=== PATIENT | female | born 1945 | race Caucasian/White ===

== ENCOUNTER 2018-09-10 12:05 | Emergency (ER) | payer MEDICARE ==
[2018-09-10 12:32] VITALS: BP 171/76; PULSE 59; O2SAT 100
--- NOTE | 2018-09-10 12:40 | ERPHSYRPT ---
- History of Present Illness Time Seen by Provider: 09/10/18 12:20 Source: patient Patient Subjective Stated Complaint: pain to right lower leg with swelling to the knee for a couple of days. pain into calf to day/ no injury.. Triage Nursing Assessment: alert and in no distress. pain to right calf today swelling to right knee x 2 days. + pedal pulse.. warm to touch. denies injury.. did travel with suzanne in a [employer] to [place] 1 month ago. no other c/o Physician History: 73 y/o white female presents with 2 week h/o right lower extremity pain and swelling. pt was traveling in a [employer] truck for 4 days recently. pt denies cp and soa. pt has a longstanding h/o varicose veins. her mother had a h/o dvt. pt is on a once a day baby asa. Method of Injury: other (no injury) Occurred: other (2 weeks) Quality: aching Lower Extremities Pain: leg: right Associated Symptoms: none Allergies/Adverse Reactions: cephalexin monohydrate [From Keflex] Allergy (Unknown, Verified 09/10/18 12:32) erythromycin base [Erythromycin Base] Allergy (Unknown, Verified 09/10/18 12:32) Sulfa (Sulfonamide Antibiotics) [Sulfa(Sulfonamide Antibiotics)] Allergy ( Unknown, Verified 09/10/18 12:32) betamethasone [From Celestone] Adverse Reaction (Unknown, Verified 09/10/18 12: 32) tired/"doenst feel well" betamethasone sodium phosphate [From Celestone] Adverse Reaction (Unknown, Verified 09/10/18 12:32) tired/"doenst feel well" brompheniramine maleate [From Dimetapp Allergy] Adverse Reaction (Unknown, Verified 09/10/18 12:32) codeine [Codeine] Adverse Reaction (Unknown, Verified 09/10/18 12:32) phenylpropanolamine HCl [From Dimetapp Allergy] Adverse Reaction (Unknown, Verified 09/10/18 12:32) Home Medications: Aspirin 81 mg PO DAILY 09/17/14 [History] Metformin HCl 500 mg [Glucophage 500 MG] 1,000 mg PO BID 09/17/14 [History ] Nebivolol HCl [Bystolic] 5 mg PO DAILY 09/17/14 [History] PANTOPRAZOLE 40 mg Tablet [Protonix 40MG Tablet] 40 mg PO DAILY 09/17/14 [ History] Carboxymethylcellulose Sodium [Thera Tears] 1 - 2 drop OP Q2H/PRN PRN 10/25/15 [ History] Lisinopril 20 mg [Zestril 20 MG] 20 mg PO DAILY 10/25/15 [History] Nitroglycerin 0.4 mg (Ed) [Nitrostat 0.4 MG (ED)] 0.4 mg SL UD 10/25/15 [ History] Hx Tetanus, Diphtheria Vaccination/Date Given: No Hx Influenza Vaccination/Date Given: No Hx Pneumococcal Vaccination/Date Given: Yes () - Review of Systems Constitutional: No Symptoms Eyes: No Symptoms Ears, Nose, & Throat: No Symptoms Respiratory: No Symptoms Cardiac: No Symptoms Abdominal/Gastrointestinal: No Symptoms Genitourinary Symptoms: No Symptoms Musculoskeletal: Other (right lower leg) Skin: No Symptoms Neurological: No Symptoms Psychological: No Symptoms Endocrine: No Symptoms Hematologic/Lymphatic: No Symptoms Immunological/Allergic: No Symptoms All Other Systems: Reviewed and Negative - Past Medical History Pertinent Past Medical History: Yes Neurological History: Migraines ENT History: Cataracts Cardiac History: Hypertension Respiratory History: Asthma, Bronchitis Endocrine Medical History: Diabetes Type II, Hypoglycemia Musculoskeletal History: Arthritis, Osteoarthritis GI Medical History: Colitis, Hemorrhoids, Polyps History: No Pertinent History Psycho-Social History: Depression Female Reproductive Disorders: No Pertinent History - Past Surgical History Past Surgical History: Yes Neuro Surgical History: No Pertinent History Cardiac: Cardiac Catheterization Respiratory: No Pertinent History Gastrointestinal: Appendectomy Genitourinary: No Pertinent History Musculoskeletal: Joint Replacement, Orthopedic Surgery Female Surgical History: Hysterectomy Other Surgical History: bilateral knee replacements, knee surgeries and arthroscopies., - Social History Smoking Status: Never smoker Exposure to second hand smoke: Yes Drug Use: none Patient Lives Alone: No - Female History Hx Now: No - Nursing Vital Signs Nursing Vital Signs: Initial Vital Signs Temperature 97.2 F 09/10/18 12:25 Pulse Rate 59 L 09/10/18 12:25 Respiratory Rate 16 09/10/18 12:25 Blood Pressure 171/76 09/10/18 12:25 O2 Sat by Pulse Oximetry 100 09/10/18 12:25 Pain Scale Pain Intensity 3 - Physical Exam General Appearance: no apparent distress, alert, anxiety Eyes, Ears, Nose, Throat Exam: normal ENT inspection, moist mucous membranes Neck Exam: normal inspection, non-tender, supple, full range of motion Cardiovascular/Respiratory Exam: chest non-tender, normal breath sounds, regular rate/rhythm Gastrointestinal/Abdominal Exam: non-tender, soft, no organomegaly, no hernia Back Exam: normal inspection, normal range of motion, No CVA tenderness, No vertebral tenderness Hips Exam: bilateral: non-tender, normal inspection, normal range of motion, no evidence of injury Legs Exam: right leg: non-tender, bilateral leg: normal inspection, normal range of motion, no evidence of injury Knees Exam: bilateral knee: non-tender, normal inspection, normal range of motion, no evidence of injury Ankle Exam: bilateral ankle: non-tender, normal inspection, normal range of motion, no evidence of injury Foot Exam: bilateral foot: non-tender, normal inspection, normal range of motion , no evidence of injury Neuro/Tendon Exam: normal sensation, normal motor functions, normal tendon functions Mental Status Exam: alert, oriented x 3, cooperative Skin Exam: normal color, warm, dry SpO2 Interpretation: normal SpO2: 100 Oxygen Delivery: Room Air - Course Nursing assessment & vital signs reviewed: Yes Ordered Tests: Active Orders 24 hr Category Date Time Status VENOUS UNILAT/LIMITED EXTREMIT [US] Stat Exams 09/10/18 12:41 Ordered - Progress Progress: unchanged Counseled pt/family regarding: diagnosis, need for follow-up, rad results - Departure Time of Disposition: 13:02 Departure Disposition: Home Clinical Impression: Right leg pain Condition: Stable Critical Care Time: No Referrals: SARAH SMITH MD [Primary Care Provider] - Additional Instructions: keep lower legs elevated above level of heart when not ambulating. add ibuprofen for pain. heating pad to area, but not directly on skin, on medium heat, 3 times daily. follow up with your primary doctor for further management
--- NOTE | 2018-09-10 13:17 | XRAY ---
Indication: Right leg swelling. Two-dimensional sonogram and color Doppler imaging of the major venous vessels of the right leg was performed. Comparison: February 24, 2015. Again no thrombus seen in the examined deep venous vessels of the right leg including greater saphenous vein. Veins demonstrate normal compressibility. Venous waveforms are normal with and without augmentation. Impression: Right leg again negative for DVT.
== END 2018-09-10 13:31 | disposition home or self-care (01) ==
LOC: ED 12:05
DX: M79.661 Pain in right lower leg (principal); Z79.899 Other long term (current) drug therapy
CPT/HCPCS: 93971; 99283

== ENCOUNTER 2018-12-12 07:09 | Emergency (ER) | payer MEDICARE ==
[2018-12-12 07:35] VITALS: PULSE 64; O2SAT 97
--- NOTE | 2018-12-12 07:43 | ERPHSYRPT ---
- History of Present Illness Time Seen by Provider: 12/12/18 07:39 Source: patient Exam Limitations: no limitations Patient Subjective Stated Complaint: noticed a small raised area to right lower leg this am. states granddaughter bumped into it last week. Triage Nursing Assessment: ambulated to room per self. skin w/d, color normal, resp easy. very small bruised raised area noted to right lower leg. Physician History: noticed a small raised area to right lower leg this am. states granddaughter bumped into it last week. no active bleeding Method of Injury: direct blow Occurred: this morning Quality: burning Severity of Pain-Max: mild Severity of Pain-Current: mild Allergies/Adverse Reactions: cephalexin monohydrate [From Keflex] Allergy (Unknown, Verified 12/12/18 07:30) erythromycin base [Erythromycin Base] Allergy (Unknown, Verified 12/12/18 07:30) Sulfa (Sulfonamide Antibiotics) [Sulfa(Sulfonamide Antibiotics)] Allergy ( Unknown, Verified 12/12/18 07:30) doxycycline Allergy (Verified 12/12/18 07:30) betamethasone [From Celestone] Adverse Reaction (Unknown, Verified 12/12/18 07: 30) tired/"doenst feel well" betamethasone sodium phosphate [From Celestone] Adverse Reaction (Unknown, Verified 12/12/18 07:30) tired/"doenst feel well" brompheniramine maleate [From Dimetapp Allergy] Adverse Reaction (Unknown, Verified 12/12/18 07:30) codeine [Codeine] Adverse Reaction (Unknown, Verified 12/12/18 07:30) phenylpropanolamine HCl [From Dimetapp Allergy] Adverse Reaction (Unknown, Verified 12/12/18 07:30) Home Medications: Aspirin 81 mg PO DAILY 09/17/14 [History] Metformin HCl 500 mg [Glucophage 500 MG] 1,000 mg PO BID 09/17/14 [History ] Nebivolol HCl [Bystolic] 5 mg PO DAILY 09/17/14 [History] Carboxymethylcellulose Sodium [Thera Tears] 1 - 2 drop OP Q2H/PRN PRN 10/25/15 [ History] Lisinopril 20 mg [Zestril 20 MG] 20 mg PO DAILY 10/25/15 [History] Nitroglycerin 0.4 mg (Ed) [Nitrostat 0.4 MG (ED)] 0.4 mg SL UD 10/25/15 [ History] Glipizide [Glipizide ER] 5 mg PO DAILY 12/12/18 [History] Hx Tetanus, Diphtheria Vaccination/Date Given: No Hx Influenza Vaccination/Date Given: No Hx Pneumococcal Vaccination/Date Given: Yes () Immunizations Up to Date: No - Review of Systems Constitutional: No Fever, No Chills Eyes: No Symptoms Ears, Nose, & Throat: No Symptoms Respiratory: No Cough, No Dyspnea Cardiac: No Chest Pain, No Edema, No Syncope Abdominal/Gastrointestinal: No Abdominal Pain, No Nausea, No Vomiting, No Diarrhea Genitourinary Symptoms: No Dysuria Musculoskeletal: No Back Pain, No Neck Pain Skin: Induration, No Rash Neurological: No Dizziness, No Focal Weakness, No Sensory Changes Psychological: No Symptoms Endocrine: No Symptoms All Other Systems: Reviewed and Negative - Past Medical History Pertinent Past Medical History: Yes Neurological History: Migraines ENT History: Cataracts Cardiac History: Hypertension Respiratory History: Asthma, Bronchitis Endocrine Medical History: Diabetes Type II, Hypoglycemia Musculoskeletal History: Arthritis, Osteoarthritis GI Medical History: Colitis, Hemorrhoids, Polyps History: No Pertinent History Psycho-Social History: Depression Female Reproductive Disorders: No Pertinent History - Past Surgical History Past Surgical History: Yes Neuro Surgical History: No Pertinent History Cardiac: Cardiac Catheterization Respiratory: No Pertinent History Gastrointestinal: Appendectomy Genitourinary: No Pertinent History Musculoskeletal: Joint Replacement, Orthopedic Surgery Female Surgical History: Hysterectomy Other Surgical History: bilateral knee replacements, knee surgeries and arthroscopies., - Social History Smoking Status: Never smoker Exposure to second hand smoke: Yes Drug Use: none Patient Lives Alone: No - Female History Hx Now: No - Nursing Vital Signs Nursing Vital Signs: Initial Vital Signs Temperature 97.4 F 12/12/18 07:18 Pulse Rate 64 12/12/18 07:18 Respiratory Rate 16 12/12/18 07:18 Blood Pressure 184/82 12/12/18 07:18 O2 Sat by Pulse Oximetry 97 12/12/18 07:18 Pain Scale Pain Intensity 3 - Physical Exam General Appearance: alert Eyes, Ears, Nose, Throat Exam: moist mucous membranes Neck Exam: non-tender, supple Cardiovascular/Respiratory Exam: chest non-tender, normal breath sounds, regular rate/rhythm, no respiratory distress Gastrointestinal/Abdominal Exam: non-tender, guarding Back Exam: normal inspection, No vertebral tenderness Hips Exam: right: soft tissue tenderness (varicose veins superficial) Neuro/Tendon Exam: normal sensation, normal motor functions Mental Status Exam: alert, oriented x 3, cooperative Skin Exam: normal color, warm, dry SpO2: 97 - Course Nursing assessment & vital signs reviewed: Yes - Progress Progress: unchanged Counseled pt/family regarding: diagnosis, need for follow-up - Departure Time of Disposition: 07:41 Departure Disposition: Home Clinical Impression: Phlebitis and thrombophlebitis of superficial vessels of right lower extremity Condition: Stable Critical Care Time: No Referrals: SARAH SMITH MD [Primary Care Provider] - Instructions: Phlebitis (DC), Superficial Phlebitis Additional Instructions: Please follow the instructions given to you. Please take your medication as prescribed if given. If symptoms recur or get worse, come back to the emergency room if you cannot reach your primary care physician, or call your primary care physician for an appointment. Again if your symptoms get worse, come back to the emergency room. Thanks for visiting emergency room, and let us take care of you.
[2018-12-12 07:47] VITALS: BP 164/80
== END 2018-12-12 07:54 | disposition home or self-care (01) ==
LOC: ED 07:09
DX: I80.9 Phlebitis and thrombophlebitis of unspecified site (principal); E11.9 Type 2 diabetes mellitus without complications; Z79.4 Long term (current) use of insulin; Z79.899 Other long term (current) drug therapy
CPT/HCPCS: 99283

== ENCOUNTER 2019-02-11 17:30 | Emergency (ER) | payer MEDICARE ==
--- NOTE | 2019-02-11 18:43 | ERPHSYRPT ---
- History of Present Illness Time Seen by Provider: 02/11/19 18:42 Source: patient, family Exam Limitations: no limitations Patient Subjective Stated Complaint: STATES FEELS LIKE GLANDS IN NECK ARE SWOLLEN ANDTHROAT IS SWELLING SHUT AND IS SOB. SYMPTOMS STARTED LAST NIGHT. DENIES ANY PAIN. STATES WAS DX WITH "CALCIUM SPOTS ON THYROID" RECENTLY. Triage Nursing Assessment: AMBULATED TO ROOM PER SELF. SKIN W/D, COLOR NORMAL, RESP NONLABORED. Physician History: 73 y/o white female presents with several month h/o swollen lymph nodes of the neck and feels as though throat shuts off intermittently. denies cp. has had occasional soa with coughing. has known thyroid calcifications dr. elizabeth is working up. pts next appt with him in early march. Timing/Duration: gradual onset, intermittent Severity: mild ENT Location: throat Prearrival Treatment: no prearrival treatment Modifying Factors: Improves With: coughing (occasionally) Associated Symptoms: cough, swollen glands (sensation), No ear pain (R), No ear pain (L), No headache, No poor fluid intake, No poor solids intake, No sore throat, No difficulty swallowing Allergies/Adverse Reactions: cephalexin monohydrate [From Keflex] Allergy (Unknown, Verified 12/12/18 07:30) erythromycin base [Erythromycin Base] Allergy (Unknown, Verified 12/12/18 07:30) Sulfa (Sulfonamide Antibiotics) [Sulfa(Sulfonamide Antibiotics)] Allergy ( Unknown, Verified 12/12/18 07:30) doxycycline Allergy (Verified 12/12/18 07:30) betamethasone [From Celestone] Adverse Reaction (Unknown, Verified 12/12/18 07: 30) tired/"doenst feel well" betamethasone sodium phosphate [From Celestone] Adverse Reaction (Unknown, Verified 12/12/18 07:30) tired/"doenst feel well" brompheniramine maleate [From Dimetapp Allergy] Adverse Reaction (Unknown, Verified 12/12/18 07:30) codeine [Codeine] Adverse Reaction (Unknown, Verified 12/12/18 07:30) phenylpropanolamine HCl [From Dimetapp Allergy] Adverse Reaction (Unknown, Verified 12/12/18 07:30) Home Medications: Aspirin 81 mg PO DAILY 12/13/14 [History] Metformin HCl 500 mg [Glucophage 500 MG] 1,000 mg PO DAILY 09/17/14 [ History] Nebivolol HCl [Bystolic] 5 mg PO DAILY 09/17/14 [History] Carboxymethylcellulose Sodium [Thera Tears] 1 - 2 drop OP Q2H/PRN PRN 10/25/15 [ History] Lisinopril 20 mg [Zestril 20 MG] 20 mg PO DAILY 10/25/15 [History] Nitroglycerin 0.4 mg (Ed) [Nitrostat 0.4 MG (ED)] 0.4 mg SL UD 10/25/15 [ History] Hx Tetanus, Diphtheria Vaccination/Date Given: No Hx Influenza Vaccination/Date Given: No Hx Pneumococcal Vaccination/Date Given: No - Review of Systems Constitutional: No Symptoms Eyes: No Symptoms Ears, Nose, & Throat: Throat Swelling (sensation.) Respiratory: No Symptoms, No Cough, No Dyspnea, No Stridor, No Wheezing Cardiac: No Symptoms Abdominal/Gastrointestinal: No Symptoms Genitourinary Symptoms: No Symptoms Musculoskeletal: No Symptoms Skin: No Symptoms Neurological: No Symptoms Psychological: No Symptoms Endocrine: No Symptoms Hematologic/Lymphatic: No Symptoms Immunological/Allergic: No Symptoms All Other Systems: Reviewed and Negative - Past Medical History Pertinent Past Medical History: Yes Neurological History: Migraines ENT History: Cataracts Cardiac History: Hypertension Respiratory History: Asthma, Bronchitis Endocrine Medical History: Diabetes Type II, Hypoglycemia Musculoskeletal History: Arthritis, Osteoarthritis GI Medical History: Colitis, Hemorrhoids, Polyps History: No Pertinent History Psycho-Social History: Depression Female Reproductive Disorders: No Pertinent History - Past Surgical History Past Surgical History: Yes Neuro Surgical History: No Pertinent History Cardiac: Cardiac Catheterization Respiratory: No Pertinent History Gastrointestinal: Appendectomy Genitourinary: No Pertinent History Musculoskeletal: Joint Replacement, Orthopedic Surgery Female Surgical History: Hysterectomy Other Surgical History: bilateral knee replacements, knee surgeries and arthroscopies., - Social History Smoking Status: Never smoker Exposure to second hand smoke: No Drug Use: none Patient Lives Alone: No - Female History Hx Now: No - Nursing Vital Signs Nursing Vital Signs: Initial Vital Signs Temperature 98.2 F 02/11/19 18:03 Pulse Rate 74 02/11/19 18:03 Respiratory Rate 16 02/11/19 18:03 Blood Pressure 154/89 02/11/19 18:03 O2 Sat by Pulse Oximetry 94 L 02/11/19 18:03 Pain Scale Pain Intensity 0 - Physical Exam General Appearance: no apparent distress, alert, anxiety Eye Exam: bilateral eye: normal inspection, PERRL, EOMI Ear Exam: bilateral ear: auricle normal, canal normal, TM normal Nasal Exam: normal inspection Throat Exam: normal, pharynx normal, moist mucus membranes, No dental tenderness , No maxillary swelling, No pharynx swelling, No tongue swollen, No tonsillar swelling, No uvula swelling, No voice changes Neck Exam: normal inspection, non-tender, supple, full range of motion, No lymphadenopathy (R), No lymphadenopathy (L) Cardiovascular/Respiratory Exam: chest non-tender, normal breath sounds, regular rate/rhythm Abdominal Exam: non-tender, soft, no organomegaly, no hernia, No tenderness Neurologic Exam: alert, oriented x 3, cooperative, [employer] II-XII nml as tested Skin Exam: normal color, warm, dry SpO2 Interpretation: normal SpO2: 94 O2 Delivery: Room Air Ordered Tests: Medication Summary Discontinued Medications Generic Name Dose Route Start Last Admin Trade Name Bassem PRN Reason Stop Dose Admin Prednisone 10 mg 02/11/19 19:45 02/11/19 19:54 Deltasone 10 Mg PO 02/11/19 19:46 10 mg STAT ONE Administration Prednisone Confirm 02/11/19 19:47 Deltasone 20 Mg Administered 02/11/19 19:48 Dose 20 mg .ROUTE .STK-MED ONE - Progress Progress: unchanged Progress Note: 02/11/19 20:12 pt states she can take prednisone. she just does not like how they have made her feel. no true allergy to them Counseled pt/family regarding: diagnosis, need for follow-up - Departure Departure Disposition: Home Clinical Impression: Throat swelling Condition: Stable Critical Care Time: No Referrals: SARAH ELIZABETH MD [Primary Care Provider] - Additional Instructions: take medications as prescribed. follow up with dr. elizabeth' tomorrow to arrange appointment. return to ED if symptoms worsen Prescriptions: Prednisone 10 mg [Deltasone 10 mg] 10 mg PO BID #5 tablet
[2019-02-11] MEDS ORDERED: DELTASONE 10 MG PO ONE (19:45)
[2019-02-11] MEDS ORDERED: DELTASONE 20 MG ONE (19:47)
[2019-02-11 21:17] VITALS: BP 125/86; PULSE 88; O2SAT 95
== END 2019-02-11 21:18 | disposition home or self-care (01) ==
LOC: ED 17:30
DX: J38.4 Edema of larynx (principal)
CPT/HCPCS: 99283; A9270-GY

== ENCOUNTER 2019-03-10 11:25 | Emergency (ER) | payer MEDICARE ==
[2019-03-10 11:45] VITALS: O2SAT 98
--- NOTE | 2019-03-10 11:54 | ERPHSYRPT ---
- History of Present Illness Time Seen by Provider: 03/10/19 11:42 Source: patient Exam Limitations: no limitations Patient Subjective Stated Complaint: tripped over her daughter in law yesterday.. pain to right posterior thigh.. Triage Nursing Assessment: alert and oriented with c/o pain to right thigh that goes from hip to ankle. no bruising or swelling noted. ambulated with no difficulty. + pedal pulse present. Physician History: This 73-year-old white female with history of migraines, cataracts, high blood pressure, asthma, bronchitis, arthritis, diabetes She arrives with complaints of pain over Her posterior right thigh radiating down to her ankle which occurred since last night at 9:00 she states she was bending over subflooring and felt a pop she has a pain in her right posterior thigh did have some pain in her ankle however has no localized ankle pain. Patient is able to walk but she states pain is worse with walking and movement. Past medical history includes migraine, cataracts, high blood pressure, asthma, bronchitis, diabetes 2, hypoglycemia, arthritis, osteoarthritis, colitis, polyps , depression.. Past surgical history includes appendectomy, bilateral knee replacement, hysterectomy,. Social history occasional glass of wine. Method of Injury: other (bent over and felt a pop in her posterior right thigh) Lower Extremities Pain: thigh: right Modifying Factors: Improves With: movement Associated Symptoms: none Allergies/Adverse Reactions: cephalexin monohydrate [From Keflex] Allergy (Unknown, Verified 03/10/19 11:45) erythromycin base [Erythromycin Base] Allergy (Unknown, Verified 03/10/19 11:45) Sulfa (Sulfonamide Antibiotics) [Sulfa(Sulfonamide Antibiotics)] Allergy ( Unknown, Verified 03/10/19 11:45) doxycycline Allergy (Verified 03/10/19 11:45) betamethasone [From Celestone] Adverse Reaction (Unknown, Verified 03/10/19 11: 45) tired/"doenst feel well" betamethasone sodium phosphate [From Celestone] Adverse Reaction (Unknown, Verified 03/10/19 11:45) tired/"doenst feel well" brompheniramine maleate [From Dimetapp Allergy] Adverse Reaction (Unknown, Verified 03/10/19 11:45) codeine [Codeine] Adverse Reaction (Unknown, Verified 03/10/19 11:45) phenylpropanolamine HCl [From Dimetapp Allergy] Adverse Reaction (Unknown, Verified 03/10/19 11:45) Home Medications: Aspirin 81 mg PO DAILY 09/17/14 [History] Metformin HCl 500 mg [Glucophage 500 MG] 1,000 mg PO DAILY 09/17/14 [ History] Nebivolol HCl [Bystolic] 5 mg PO DAILY 09/17/14 [History] Carboxymethylcellulose Sodium [Thera Tears] 1 - 2 drop OP Q2H/PRN PRN 10/25/15 [ History] Lisinopril 20 mg [Zestril 20 MG] 20 mg PO DAILY 10/25/15 [History] Nitroglycerin 0.4 mg (Ed) [Nitrostat 0.4 MG (ED)] 0.4 mg SL UD 10/25/15 [ History] Hx Tetanus, Diphtheria Vaccination/Date Given: No Hx Influenza Vaccination/Date Given: No Hx Pneumococcal Vaccination/Date Given: No Immunizations Up to Date: (unknown) - Review of Systems Constitutional: No Fever, No Chills Eyes: No Symptoms Ears, Nose, & Throat: No Symptoms Respiratory: No Cough, No Dyspnea Cardiac: No Chest Pain, No Edema, No Syncope Abdominal/Gastrointestinal: No Abdominal Pain, No Nausea, No Vomiting, No Diarrhea Genitourinary Symptoms: No Dysuria Musculoskeletal: Other (pain posterior right thigh) Skin: No Rash Neurological: No Dizziness, No Focal Weakness, No Sensory Changes Psychological: No Symptoms Endocrine: No Symptoms All Other Systems: Reviewed and Negative - Past Medical History Pertinent Past Medical History: Yes Neurological History: Migraines ENT History: Cataracts Cardiac History: Hypertension Respiratory History: Asthma, Bronchitis Endocrine Medical History: Diabetes Type II, Hypoglycemia Musculoskeletal History: Arthritis, Osteoarthritis GI Medical History: Colitis, Hemorrhoids, Polyps History: No Pertinent History Psycho-Social History: Depression Female Reproductive Disorders: No Pertinent History - Past Surgical History Past Surgical History: Yes Neuro Surgical History: No Pertinent History Cardiac: Cardiac Catheterization Respiratory: No Pertinent History Gastrointestinal: Appendectomy Genitourinary: No Pertinent History Musculoskeletal: Joint Replacement, Orthopedic Surgery Female Surgical History: Hysterectomy Other Surgical History: bilateral knee replacements, knee surgeries and arthroscopies., - Social History Smoking Status: Never smoker Exposure to second hand smoke: No Drug Use: none Patient Lives Alone: No - Female History Hx Now: No - Nursing Vital Signs Nursing Vital Signs: Initial Vital Signs Temperature 97.6 F 03/10/19 11:37 Pulse Rate 66 03/10/19 11:37 Respiratory Rate 18 03/10/19 11:37 Blood Pressure 173/119 03/10/19 11:37 O2 Sat by Pulse Oximetry 98 03/10/19 11:37 Pain Scale Pain Intensity 5 - Physical Exam General Appearance: alert Eyes, Ears, Nose, Throat Exam: moist mucous membranes Neck Exam: non-tender, supple Cardiovascular/Respiratory Exam: chest non-tender, normal breath sounds, regular rate/rhythm, no respiratory distress Gastrointestinal/Abdominal Exam: non-tender, guarding Back Exam: normal inspection, No vertebral tenderness Hips Exam: bilateral: non-tender, normal inspection, normal range of motion Legs Exam: right leg: other (pain with palpation posterior right thigh), left leg: non-tender, normal inspection, bilateral leg: normal range of motion Knees Exam: bilateral knee: non-tender, normal inspection, normal range of motion, no evidence of injury Ankle Exam: bilateral ankle: non-tender, normal inspection, normal range of motion, no evidence of injury Foot Exam: bilateral foot: non-tender, normal inspection, normal range of motion , no evidence of injury DTR - Lower Extremities Exam: ankle (R): 2+, ankle (L): 2+ Neuro/Tendon Exam: normal sensation, normal motor functions Mental Status Exam: alert, oriented x 3, cooperative SpO2 Interpretation: normal (98%) SpO2: 98 - Course Nursing assessment & vital signs reviewed: Yes - Radiology Exams Right Femur X-ray Interpretation: Discussed w/ radiologist (x-ray right femur: Total knee arthroplasty with an intact prosthes posterior heterotopic ossification. No other bony, articular or soft tissue abnormalities.) Ordered Tests: Active Orders 24 hr Category Date Time Status FEMUR Stat Exams 03/10/19 11:49 Completed Medication Summary Discontinued Medications Generic Name Dose Route Start Last Admin Trade Name Freq PRN Reason Stop Dose Admin Sodium Chloride Confirm 03/10/19 12:14 Sodium Chloride 0.9% 1000 Ml Administered 03/10/19 12:15 Dose 1,000 mls @ .ROUTE .[facility] - Progress Progress: improved Progress Note: 03/10/19 12:29 PATIENT WITH INTACT RIGHT KNEE PROSTHESIS AND POSTERIOR HETEROTOPIC OCCIFICATION POSTERIORLY ON X RAY RIGHT THIGH> NO OTHER BONY ARTICULAR OR SOFT TISSUE ABNORMALITIES i offered to place william wrap on te patient s right thigh she does not want thi want thiss will release with tylenol. - Departure Departure Disposition: Home Clinical Impression: Right thigh pain, Musculoskeletal strain Condition: Fair Critical Care Time: No Referrals: SARAH SMITH MD [Primary Care Provider] - Additional Instructions: Return home. Cold packs to area 24-48 hours. Tylenol every 4 hours as needed for pain. Followup with your family DrTrevor if symptoms worse no better in 48 hours or persist longer than one week. Return for acute distress or for severe symptoms.
[2019-03-10] MEDS ORDERED: Sodium Chloride 0.9% 1000 ML 1,000 ML ONE (12:14)
--- NOTE | 2019-03-10 12:14 | XRAY ---
Indication: Pain after walking. Comparison: None 2 views of the right femur demonstrates total knee arthroplasty with intact prosthesis and incidental posterior heterotopic ossification. No other bony, articular, or soft tissue abnormalities.
[2019-03-10] MEDS ORDERED: TYLENOL 325 MG PO ONE (12:34)
[2019-03-10] MEDS ORDERED: TYLENOL 325 MG ONE (12:42)
[2019-03-10 12:51] VITALS: BP 163/96; PULSE 65
== END 2019-03-10 12:50 | disposition home or self-care (01) ==
LOC: ED 11:25
DX: M79.651 Pain in right thigh (principal); S76.911A Strain of unspecified muscles, fascia and tendons at thigh level, right thigh, initial encounter; W01.0XXA Fall on same level from slipping, tripping and stumbling without subsequent striking against object, initial encounter; I10 Essential (primary) hypertension; E16.2 Hypoglycemia, unspecified; E11.9 Type 2 diabetes mellitus without complications
CPT/HCPCS: 36415; 73552; 80053; 99283; A9270-GY

== ENCOUNTER 2019-09-06 09:38 | Emergency (ER) | payer MEDICARE ==
[2019-09-06 10:01] VITALS: BP 171/93; PULSE 71; O2SAT 96
--- NOTE | 2019-09-06 10:24 | ERPHSYRPT ---
- History of Present Illness Time Seen by Provider: 09/06/19 10:05 Source: patient Exam Limitations: no limitations Patient Subjective Stated Complaint: Right eye injury Triage Nursing Assessment: Patient ambulated into ED and transferred self to bed. Patient A+O X3. Patient's skin pink, warm and dry. Patient states when she woke up her lilli eyes felt itchy so she rubbed them. Patient then looked into mirror and noticed right eye to be red. Patient denies pain or discomfort. Right eye noted to be bright red. Patient states she does have artificial eye lenses in lilli eyes. Physician History: Patient has a right bloodshot eye that she noticed this morning. Patient has not had any injuries she is aware. She has been coughing intermittently and has been slightly forceful when she does cough. She denies any direct trauma to her eye, being on any anticoagulation, and any change or loss of her vision, but did tell nursing she rubbed her eyes this morning. Patient has a history of hypertension and diabetes. Patient has not been evaluated prior to today's emergency department visit. Timing/Duration: today Location: right eye Severity: mild Apparent Injury: no Associated Symptoms: redness, No pain, No burning, No itching, No sensitivity to light, No matting, No eyelid swelling, No foreign body sensation, No decreased vision, No blurred vision, No double vision Visual Assistive Devices: None Chemical Exposure: No Trauma: No Welding Arc/Tanning Bed Exposure: No Allergies/Adverse Reactions: cephalexin monohydrate [From Keflex] Allergy (Unknown, Verified 09/06/19 09:48) erythromycin base [Erythromycin Base] Allergy (Unknown, Verified 09/06/19 09:48) Sulfa (Sulfonamide Antibiotics) [Sulfa(Sulfonamide Antibiotics)] Allergy ( Unknown, Verified 09/06/19 09:48) doxycycline Allergy (Verified 09/06/19 09:48) betamethasone [From Celestone] Adverse Reaction (Unknown, Verified 09/06/19 09: 48) tired/"doenst feel well" betamethasone sodium phosphate [From Celestone] Adverse Reaction (Unknown, Verified 09/06/19 09:48) tired/"doenst feel well" brompheniramine maleate [From Dimetapp Allergy] Adverse Reaction (Unknown, Verified 09/06/19 09:48) codeine [Codeine] Adverse Reaction (Unknown, Verified 09/06/19 09:48) phenylpropanolamine HCl [From Dimetapp Allergy] Adverse Reaction (Unknown, Verified 09/06/19 09:48) Home Medications: Aspirin 81 mg PO DAILY 09/17/14 [History] Metformin HCl 500 mg [Glucophage 500 MG] 1,000 mg PO DAILY 09/17/14 [ History] Nebivolol HCl [Bystolic] 10 mg PO DAILY 09/17/14 [History] Carboxymethylcellulose Sodium [Thera Tears] 1 - 2 drop OP Q2H/PRN PRN 10/25/15 [ History] Lisinopril 20 mg [Zestril 20 MG] 20 mg PO DAILY 10/25/15 [History] Nitroglycerin 0.4 mg (Ed) [Nitrostat 0.4 MG (ED)] 0.4 mg SL UD 10/25/15 [ History] Glipizide [Glipizide ER] 1 tab PO DAILY 09/06/19 [History] Hx Tetanus, Diphtheria Vaccination/Date Given: No Hx Influenza Vaccination/Date Given: Yes Hx Pneumococcal Vaccination/Date Given: Yes Immunizations Up to Date: Yes - Review of Systems Constitutional: No Fever, No Chills Eyes: No Symptoms, Eye Redness, No Eye Pain, No Itchy, No Photophobia, No Tearing, No Double Vision Ears, Nose, & Throat: No Ear Pain, No Ear Discharge, No Nose Congestion, No Nose Discharge, No Mouth Swelling, No Throat Swelling, No Painful Swallowing Respiratory: No Cough, No Dyspnea Cardiac: No Chest Pain, No Edema, No Syncope Abdominal/Gastrointestinal: No Abdominal Pain, No Nausea, No Vomiting, No Diarrhea Genitourinary Symptoms: No Dysuria, No Hematuria, No Flank Pain Musculoskeletal: No Back Pain, No Neck Pain Skin: No Rash Neurological: No Dizziness, No Focal Weakness, No Sensory Changes Psychological: No Emotional Lability Endocrine: No Excessive Sweating Hematologic/Lymphatic: No Easy Bleeding, No Easy Bruising All Other Systems: Reviewed and Negative - Past Medical History Pertinent Past Medical History: Yes Neurological History: Migraines ENT History: Cataracts Cardiac History: Hypertension Respiratory History: Asthma, Bronchitis Endocrine Medical History: Diabetes Type II, Hypoglycemia Musculoskeletal History: Arthritis, Osteoarthritis GI Medical History: Colitis, Hemorrhoids, Polyps History: No Pertinent History Psycho-Social History: Depression Female Reproductive Disorders: No Pertinent History - Past Surgical History Past Surgical History: Yes Neuro Surgical History: No Pertinent History Cardiac: Cardiac Catheterization Respiratory: No Pertinent History Gastrointestinal: Appendectomy Genitourinary: No Pertinent History Musculoskeletal: Joint Replacement, Orthopedic Surgery Female Surgical History: Hysterectomy Other Surgical History: bilateral knee replacements, knee surgeries and arthroscopies.,. artifical lens to lilli eyes - Social History Smoking Status: Never smoker Exposure to second hand smoke: Yes Drug Use: none Patient Lives Alone: No - Female History Hx Now: No - Nursing Vital Signs Nursing Vital Signs: Initial Vital Signs Temperature 97.7 F 09/06/19 09:49 Pulse Rate 71 09/06/19 09:49 Respiratory Rate 18 09/06/19 09:49 Blood Pressure 171/93 09/06/19 09:49 O2 Sat by Pulse Oximetry 96 09/06/19 09:49 Pain Scale Pain Intensity 0 - Physical Exam General Appearance: no apparent distress, alert Vision Acuity Degree Evaluation Phase: Corrected Vision Acuity Right Eye: 20/50 Vision Acuity Left Eye: 20/50 Eye Exam: right eye: normal inspection, conjunctival hemorrhage, bilateral eye: PERRL, EOMI Ears, Nose, Throat Exam: normal ENT inspection, TMs normal, pharynx normal, moist mucous membranes Neck Exam: normal inspection, non-tender, supple, full range of motion, No meningismus, No mass, No Brudzinski, No Kernig's Respiratory Exam: normal breath sounds, chest tenderness, lungs clear, respiratory distress, airway intact Cardiovascular Exam: regular rate/rhythm, normal heart sounds, normal peripheral pulses, capillary refill <2 sec Gastrointestinal Exam: soft, normal bowel sounds, No tenderness, No distention, No mass Extremity Exam: normal inspection, normal range of motion, pelvis stable, No swelling Neurologic: alert, oriented x 3, cooperative, knife operator II-XII nml as tested, normal mood/affect, sensation nml, No motor deficits Skin Exam: normal color, warm, dry, No petechiae, No jaundice, No cyanosis SpO2 Interpretation: normal SpO2: 96 O2 Delivery: Room Air - Course Nursing assessment & vital signs reviewed: Yes Ordered Tests: Active Orders 24 hr Category Date Time Status Visual Acuity STAT Care 09/06/19 09:57 Active - Departure Departure Disposition: Home Clinical Impression: Non-traumatic subconjunctival hemorrhage of right eye, Essential hypertension Condition: Good Critical Care Time: No Referrals: SARAH SMITH MD [Primary Care Provider] - Follow Up with PCP/3 days (or your eye speciaist of choice in the next 2 days as needed) Instructions: High Blood Pressure (DC), Subconjunctival Hemorrhage Additional Instructions: You will not have any long-term effects from this type of mild bleeding that occurred to your right eye, which most likely was from your coughing. Return immediately back to the emergency department if any change in vision, along headache, loss of visual batista, double vision, increased light sensitivity, vomiting, or any other concerning signs or symptoms that were not present at today's emergency department Discharge/Care Plan TOM KIM was seen on 09/06/19 in the Emergency Room. The patient was counseled regarding Diagnosis and need for follow up and when to return to the Emergency Room. Prescriptions given: None Discharge Note I have spoken with the patient. I have explained the patient's condition, diagnosis and treatment plan based on the information available to me at this time. I have answered the patient's questions and addressed any concerns. The patient has a good understanding of the patient's diagnosis, condition and treatment plan as can be expected at this point. The vital signs have been stable. The patient's condition is stable and appropriate for discharge from the emergency department. The patient will pursue further outpatient evaluation with the primary care physician or other designated or consulting physician as outlined in the discharge instructions. The patient is agreeable to this plan of care and follow -up instructions have been explained in detail. The patient has received these instructions. The patient/and or caregivers are aware that any significant change in condition or worsening of symptoms should prompt an immediate return to this or the closest emergency department or call 911. visit for immediate reevaluation in the emergency department.
== END 2019-09-06 10:33 | disposition home or self-care (01) ==
LOC: ED 09:38
DX: H11.32 Conjunctival hemorrhage, left eye (principal); I10 Essential (primary) hypertension
CPT/HCPCS: 99283

== ENCOUNTER 2020-03-18 16:46 | Emergency (ER) | payer MEDICARE ==
--- NOTE | 2020-03-18 16:50 | ERPHSYRPT ---
- History of Present Illness Time Seen by Provider: 03/18/20 16:50 Source: patient Exam Limitations: no limitations Physician History: A 74-year-old white female who is not on any anticoagulation therapy fell accidentally onto her deck after missing a step. She fell hitting her head face and nose as well as her left forearm. Patient denies loss of consciousness. She does have a mild headache but does not complain of any neck pain. Occurred: just prior to arrival Reason for Fall: tripped Injuries/Pain Location: head, face, upper extremity (Left forearm) Loss of Consciousness: no loss of consciousness Quality: aching Severity of Pain-Max: mild Severity of Pain-Current: mild Modifying Factors: Improves With: movement Associated Symptoms (Fall): headache (Mild) Allergies/Adverse Reactions: cephalexin monohydrate [From Keflex] Allergy (Unknown, Verified 09/06/19 09:48) erythromycin base [Erythromycin Base] Allergy (Unknown, Verified 09/06/19 09:48) Sulfa (Sulfonamide Antibiotics) [Sulfa(Sulfonamide Antibiotics)] Allergy ( Unknown, Verified 09/06/19 09:48) doxycycline Allergy (Verified 09/06/19 09:48) betamethasone [From Celestone] Adverse Reaction (Unknown, Verified 09/06/19 09: 48) tired/"doenst feel well" betamethasone sodium phosphate [From Celestone] Adverse Reaction (Unknown, Verified 09/06/19 09:48) tired/"doenst feel well" brompheniramine maleate [From Dimetapp Allergy] Adverse Reaction (Unknown, Verified 09/06/19 09:48) codeine [Codeine] Adverse Reaction (Unknown, Verified 09/06/19 09:48) phenylpropanolamine HCl [From Dimetapp Allergy] Adverse Reaction (Unknown, Verified 09/06/19 09:48) Home Medications: Aspirin 81 mg PO DAILY 09/17/14 [History] Metformin HCl 500 mg [Glucophage 500 MG] 1,000 mg PO DAILY 09/17/14 [ History] Nebivolol HCl [Bystolic] 10 mg PO DAILY 09/17/14 [History] Carboxymethylcellulose Sodium [Thera Tears] 1 - 2 drop OP Q2H/PRN PRN 10/25/15 [ History] Lisinopril 20 mg [Zestril 20 MG] 20 mg PO DAILY 10/25/15 [History] Nitroglycerin 0.4 mg (Ed) [Nitrostat 0.4 MG (ED)] 0.4 mg SL UD 10/25/15 [ History] Glipizide [Glipizide ER] 1 tab PO DAILY 09/06/19 [History] Hx Tetanus, Diphtheria Vaccination/Date Given: No Hx Influenza Vaccination/Date Given: Yes Hx Pneumococcal Vaccination/Date Given: Yes Travel Risk - International Travel Have you traveled outside of the country in past 3 weeks: No - Coronavirus Screening Are you exhibiting any of the following symptoms?: No Close contact with a COVID-19 positive Pt in past 14-21 Days: No - Review of Systems Constitutional: No Symptoms Eyes: No Symptoms Ears, Nose, & Throat: No Symptoms Respiratory: No Symptoms Cardiac: No Symptoms Abdominal/Gastrointestinal: No Symptoms Genitourinary Symptoms: No Symptoms Musculoskeletal: No Symptoms Skin: Other Neurological: No Symptoms Psychological: No Symptoms (Tear left forearm) Endocrine: No Symptoms Hematologic/Lymphatic: No Symptoms Immunological/Allergic: No Symptoms All Other Systems: Reviewed and Negative - Past Medical History Pertinent Past Medical History: Yes Neurological History: No Pertinent History ENT History: Cataracts Cardiac History: High Cholesterol, Hypertension, Myocardial Infarction ([place]) Respiratory History: Asthma Endocrine Medical History: Diabetes Type II Musculoskeletal History: Arthritis, Fractures GI Medical History: Colitis, Hemorrhoids, Polyps History: No Pertinent History Psycho-Social History: Depression Female Reproductive Disorders: No Pertinent History Other Medical History: Previous fx in foot - Past Surgical History Past Surgical History: Yes Neuro Surgical History: No Pertinent History Cardiac: Cardiac Catheterization Respiratory: No Pertinent History Gastrointestinal: Appendectomy Genitourinary: No Pertinent History Musculoskeletal: Joint Replacement, Orthopedic Surgery Female Surgical History: Hysterectomy Other Surgical History: bilateral knee replacements, knee surgeries and arthroscopies.,. artifical lens to lilli eyes - Social History Smoking Status: Never smoker Exposure to second hand smoke: Yes Drug Use: none Patient Lives Alone: No - Nursing Vital Signs Nursing Vital Signs: Initial Vital Signs Temperature 97.3 F 03/18/20 16:52 Pulse Rate 80 03/18/20 16:52 Respiratory Rate 22 03/18/20 16:52 Blood Pressure 186/77 03/18/20 16:52 O2 Sat by Pulse Oximetry 98 03/18/20 16:52 Pain Scale Pain Intensity 3 - [place] Coma Score Best Eye Response (Ferny): (4) open spontaneously Best Verbal Response (Ferny): (5) oriented Best Motor Response ([place]): (6) obeys commands Ferny Total: 15 - Physical Exam General Appearance: no apparent distress, alert, anxiety Head Injury: tenderness (Mild abrasion nasal bridge) Eye Exam: PERRL/EOMI, eyes nml inspection ENT Exam: airway nml, other (Abrasion nasal bridge nasal bridge is lined up normally) Neck Exam: supple, trachea midline, full range of motion, normal alignment, normal inspection Respiratory/Chest Exam: normal breath sounds, No chest tenderness, No respiratory distress Cardiovascular Exam: normal heart sounds, regular rate/rhythm, murmur Gastrointestinal Exam: soft, normal bowel sounds, No tenderness Rectal Exam: not done Back Exam: normal inspection, normal range of motion, No CVA tenderness, No vertebral tenderness Extremity Exam: normal inspection, normal range of motion, capillary refill <3 sec, pelvis stable Neurologic Exam: alert, oriented x 3, cooperative, business process representative II-XII nml as tested Skin Exam: normal color, warm, dry SpO2 Interpretation: normal O2 Delivery: Room Air - Course Nursing assessment & vital signs reviewed: Yes Ordered Tests: Active Orders 24 hr Category Date Time Status CERVICAL SPINE WO CONTRAST [CT] Stat Exams 03/18/20 17:12 Taken FACIAL BONES WO CONTRAST [CT] Stat Exams 03/18/20 17:12 Taken FOREARM Stat Exams 03/18/20 17:13 Taken HEAD WITHOUT CONTRAST [CT] Stat Exams 03/18/20 17:12 Taken Medication Summary Discontinued Medications Generic Name Dose Route Start Last Admin Trade Name Freq PRN Reason Stop Dose Admin Bacitracin Zinc Confirm 03/18/20 18:34 Baciguent Packet Administered 03/18/20 18:35 Dose 1 gm .ROUTE .[facility] - Progress Progress Note: 03/18/20 18:13 X-ray of the left forearm reveals no acute fracture or dislocation 03/18/20 18:50 CAT scan of the head no acute intracranial abnormality; CAT scan of the cervical spine shows degenerative changes only with no acute fracture or subluxation; CAT scan of the facial bones reveals no acute fracture or dislocation. Counseled pt/family regarding: diagnosis, need for follow-up, rad results - Departure Departure Disposition: Home Clinical Impression: Fall with injury, Abrasion, Skin tear Condition: Stable Critical Care Time: No Referrals: SARAH SMITH MD [Primary Care Provider] - Additional Instructions: Keep all your abrasion sites and skin tear sites clean with soap and water. Apply antibiotic ointment to each site. Reapply bandage daily. Use Tylenol and ibuprofen for pain.
[2020-03-18 18:17] VITALS: PULSE 59
[2020-03-18] MEDS ORDERED: BACIGUENT PACKET ONE (18:34)
[2020-03-18 19:06] VITALS: BP 128/83; O2SAT 99
--- NOTE | 2020-03-18 20:50 | XRAY ---
Indication: Pain following fall. Comparison: None 2 view left forearm demonstrates radiocarpal joint space loss, moderate 1st metacarpal multangular scaphoid degenerative changes, and moderate 1st IP joint degenerative changes. No other bony, articular, or soft tissue abnormalities.
--- NOTE | 2020-03-18 20:52 | XRAY ---
Indication: Left head injury following fall. Multiple contiguous axial images obtained through the head without contrast. Comparison: None Age-appropriate global atrophy. No acute intracranial hemorrhage, abnormal extra-axial fluid collection, or mass effect. Fourth ventricle is midline without hydrocephalus. Bony calvarium intact. Tiny left frontal partially calcified scalp cyst. Visualized paranasal sinuses and mastoid air cells are clear. Impression: Negative CT head without contrast exam. Comment: Preliminary interpretation was made by [facility]. No critical discrepancy.
--- NOTE | 2020-03-18 20:54 | XRAY ---
Indication: Left-sided pain following fall. Multiple contiguous axial images obtained through the facial bones. Sagittal and coronal reformatted images obtained. Comparison: None No acute fracture, suspicious bony lesions, or radiopaque foreign body. Orbits including roof, quinn, and floors intact. Paranasal sinuses and nasal passages are clear. Mild nasal septal deviation to the right. Visualized noncontrasted soft tissues unremarkable. CT head and CT cervical spine reported separately. Impression: Negative CT facial bones. Comment: Preliminary interpretation was made by [facility]. No critical discrepancy.
--- NOTE | 2020-03-18 20:59 | XRAY ---
Indication: Pain following fall. Multiple contiguous axial images obtained through the cervical spine. Sagittal and coronal reformatted images obtained. Comparison: None Axial images negative for acute fracture, suspicious bony lesions, or spinal canal stenosis. There is moderate C5-C7 degenerative endplate spurring and moderate multilevel bilateral degenerative facet hypertrophy. Also moderate atlantoaxial degenerative changes. Sagittal and coronal reformatted images demonstrates mild cervical lordotic reversal, positional versus paraspinal spasm. Minimal anterior stasis of C3 on C4 and C5, probably degenerative. Also C5-C7 disc space loss. No acute compression fracture or jump facet. Visualized noncontrasted soft tissues demonstrate minimal bilateral carotid calcifications. Lung apices unremarkable. CT head and CT facial bones reported separately. Impression: 1. Cervical lordotic reversal, positional versus paraspinal spasm. 2. Multilevel degenerative spondylosis including minimal grade 1 spondylolisthesis of C3-C4-C5. 3. Negative for acute fracture. Comment: Preliminary interpretation was made by [facility]. No critical discrepancy.
== END 2020-03-18 19:16 | disposition home or self-care (01) ==
LOC: ED 16:46
DX: S51.812A Laceration without foreign body of left forearm, initial encounter (principal); T14.8XXA Other injury of unspecified body region, initial encounter; W01.198A Fall on same level from slipping, tripping and stumbling with subsequent striking against other object, initial encounter; Y93.9 Activity, unspecified; Y92.89 Other specified places as the place of occurrence of the external cause; Y99.8 Other external cause status; R51 Headache; Z79.899 Other long term (current) drug therapy; J45.909 Unspecified asthma, uncomplicated; Z86.010 Personal history of colon polyps
CPT/HCPCS: 70450; 70486; 72125; 73090; 99284; A9270-GY

== ENCOUNTER 2020-07-07 13:07 | Emergency (ER) | payer MEDICARE ==
[2020-07-07 13:31] VITALS: O2SAT 98
[2020-07-07] MEDS ORDERED: Adacel Vial IM ONE ×2 (13:40→13:46)
--- NOTE | 2020-07-07 14:16 | XRAY ---
Indication: Pain and swelling following fall. Comparison: None 4 view left knee demonstrates osteopenia, total knee arthroplasty with intact articulation/prosthesis, posterior fabella, and suprapatella spur. No other bony, articular, or soft tissue abnormalities.
--- NOTE | 2020-07-07 14:21 | XRAY ---
Indication: Pain following fall. Comparison: None 3 view left wrist demonstrates osteopenia, radiocarpal joint space loss, advanced degenerative changes 1st metacarpal multangular articulation, pisiform spur, and widened scapholunate interval concerning for ligament tear. No other bony, articular, or soft tissue abnormalities.
--- NOTE | 2020-07-07 14:42 | XRAY ---
Indication: Left periorbital swelling and bruising following fall. Multiple contiguous axial images obtained through the head without contrast. Comparison: March 18, 2020. Stable age-appropriate global atrophy. No acute intracranial hemorrhage, abnormal extra-axial fluid collection, or mass effect. Fourth ventricle is midline without hydrocephalus. Bony calvarium intact. Stable 8mm left scalp calcified sebaceous cyst near the vertex. Visualized paranasal sinuses and mastoid air cells are clear. CT head and CT facial bones reported separately. Impression: Continued negative CT head without contrast exam.
--- NOTE | 2020-07-07 14:47 | XRAY ---
Indication: Left periorbital swelling and bruising following fall. Multiple contiguous axial images obtained through the facial bones. Sagittal and coronal reformatted images obtained. Comparison: March 18, 2020. There remains a few bilateral dental amalgams producing beam artifact. Again no acute fracture, suspicious bony lesions, or radiopaque foreign body. Orbits including roof, quinn, and floors intact. Paranasal sinuses and nasal passages are clear. Stable mild nasal septal deviation to the right. New mild left facial and left periorbital soft tissue swelling. Remaining visualized noncontrasted soft tissues unremarkable. CT head and CT cervical spine reported separately. Impression: Mild left facial/periorbital soft tissue swelling. Remaining CT facial bones again negative.
--- NOTE | 2020-07-07 14:50 | ERPHSYRPT ---
- History of Present Illness Time Seen by Provider: 07/07/20 13:20 Source: family Exam Limitations: no limitations Patient Subjective Stated Complaint: Pt was walking into the pet store and fell up the curb and injured her left knee, left wrist, and left side of face under her eye and by the bouse Triage Nursing Assessment: Pt brought to the ER by her , hypertensive, bruising and swelling under the left eye and above the left brow on the lateral side of head, swelling and bruising to the left knee below the knee cap, swelling and bruising to the left wrist, pt states that she has a problem where she doesn't feel pain for a long time later and she only rates her pain as 2/10, pt states that she is starting to get a headache Physician History: 75 years old female presented in the ER with chief complaint of fall prior to arrival. Patient reports she was walking and missed the curb, tripped leading to fall on the left knee/wrist/hit her left side of face as well. No loss of consciousness. She was able to get up and walk afterward. Denies any dizziness lightheadedness, headache, numbness tingling or focal weakness. Denies any chest pain palpitations or shortness of breath before or after the fall. No nausea or vomiting. Pain is mild and aggravated without any significant aggravating factors. She has a small abrasion on the left medial hand. Occurred: just prior to arrival Reason for Fall: tripped Injuries/Pain Location: head, face, upper extremity, lower extremity Loss of Consciousness: no loss of consciousness Quality: aching Severity of Pain-Max: mild Modifying Factors: Improves With: nothing Associated Symptoms (Fall): denies symptoms Allergies/Adverse Reactions: cephalexin monohydrate [From Keflex] Allergy (Unknown, Verified 07/07/20 13:32) erythromycin base [Erythromycin Base] Allergy (Unknown, Verified 07/07/20 13:32) Sulfa (Sulfonamide Antibiotics) [Sulfa(Sulfonamide Antibiotics)] Allergy (Unknown, Verified 07/07/20 13:32) doxycycline Allergy (Verified 07/07/20 13:32) betamethasone [From Celestone] Adverse Reaction (Unknown, Verified 07/07/20 13:32) tired/"doenst feel well" betamethasone sodium phosphate [From Celestone] Adverse Reaction (Unknown, Verified 07/07/20 13:32) tired/"doenst feel well" brompheniramine maleate [From Dimetapp Allergy] Adverse Reaction (Unknown, Verified 07/07/20 13:32) codeine [Codeine] Adverse Reaction (Unknown, Verified 07/07/20 13:32) phenylpropanolamine HCl [From Dimetapp Allergy] Adverse Reaction (Unknown, Verified 07/07/20 13:32) Home Medications: Aspirin 81 mg PO DAILY 09/17/14 [History] Metformin HCl 500 mg [Glucophage 500 MG] 1,000 mg PO DAILY 09/17/14 [History] Nebivolol HCl [Bystolic] 10 mg PO DAILY 09/17/14 [History] Carboxymethylcellulose Sodium [Thera Tears] 1 - 2 drop OP Q2H/PRN PRN 10/25/15 [History] Lisinopril 20 mg [Zestril 20 MG] 20 mg PO DAILY 10/25/15 [History] Nitroglycerin 0.4 mg (Ed) [Nitrostat 0.4 MG (ED)] 0.4 mg SL UD 10/25/15 [History] Glipizide [Glipizide ER] 1 tab PO DAILY 09/06/19 [History] Hx Tetanus, Diphtheria Vaccination/Date Given: No Hx Influenza Vaccination/Date Given: Yes Hx Pneumococcal Vaccination/Date Given: Yes Travel Risk - International Travel Have you traveled outside of the country in past 3 weeks: No - Coronavirus Screening Are you exhibiting any of the following symptoms?: No Close contact with a COVID-19 positive Pt in past 14-21 Days: No - Review of Systems Constitutional: No Symptoms Eyes: No Symptoms Ears, Nose, & Throat: No Symptoms Respiratory: No Symptoms Cardiac: No Symptoms Abdominal/Gastrointestinal: No Symptoms Genitourinary Symptoms: No Symptoms Musculoskeletal: Fall, Injury, Joint Swelling Skin: Skin Lesions Neurological: No Symptoms Psychological: No Symptoms Endocrine: No Symptoms Hematologic/Lymphatic: No Symptoms Immunological/Allergic: No Symptoms - Past Medical History Pertinent Past Medical History: Yes Neurological History: No Pertinent History ENT History: Cataracts Cardiac History: High Cholesterol, Hypertension, Myocardial Infarction ([place]) Respiratory History: Asthma Endocrine Medical History: Diabetes Type II Musculoskeletal History: Arthritis, Fractures GI Medical History: Colitis, Hemorrhoids, Polyps History: No Pertinent History Psycho-Social History: Depression Female Reproductive Disorders: No Pertinent History Other Medical History: Previous fx in foot - Past Surgical History Past Surgical History: Yes Neuro Surgical History: No Pertinent History Cardiac: Cardiac Catheterization Respiratory: No Pertinent History Gastrointestinal: Appendectomy Genitourinary: No Pertinent History Musculoskeletal: Joint Replacement, Orthopedic Surgery Female Surgical History: Hysterectomy Other Surgical History: bilateral knee replacements, knee surgeries and arthroscopies.,. artifical lens to lilli eyes - Social History Smoking Status: Never smoker Exposure to second hand smoke: No Drug Use: none Patient Lives Alone: No - Female History Hx Now: No - Nursing Vital Signs Nursing Vital Signs: Initial Vital Signs Temperature 97.7 F 07/07/20 13:14 Pulse Rate 64 07/07/20 13:14 Blood Pressure 181/105 07/07/20 13:14 O2 Sat by Pulse Oximetry 98 07/07/20 13:14 Pain Scale Pain Intensity 2 - [place] Coma Score Best Eye Response ([place]): (4) open spontaneously Best Verbal Response ([place]): (5) oriented Best Motor Response ([place]): (6) obeys commands [place]y Total: 15 - Physical Exam General Appearance: no apparent distress, alert Head Injury: contusions (Left forehead/maxilla/temporal area. No step in deformity.), swelling, tenderness Eye Exam: PERRL/EOMI, eyes nml inspection ENT Exam: airway nml Neck Exam: supple, trachea midline, full range of motion, normal alignment Respiratory/Chest Exam: normal breath sounds, No chest tenderness, No respiratory distress Cardiovascular Exam: normal heart sounds, regular rate/rhythm Gastrointestinal Exam: soft, normal bowel sounds, No tenderness, No distention Back Exam: normal inspection, normal range of motion, No CVA tenderness Extremity Exam: normal range of motion, capillary refill <3 sec, pelvis stable, pain with movement (Left knee with some effusion.), swelling (Left wrist medial aspect.), tenderness (Mild tenderness left knee and left wrist) Neurologic Exam: alert, oriented x 3, cooperative, jewel setter II-XII nml as tested, normal mood/affect, nml cerebellar function, sensation nml, No motor deficits Skin Exam: normal color, other (Abrasion left hand medial aspect of fifth metatarsal phalangeal joint) SpO2 Interpretation: normal SpO2: 98 O2 Delivery: Room Air - Course Nursing assessment & vital signs reviewed: Yes Ordered Tests: Active Orders 24 hr Category Date Time Status CERVICAL SPINE WO CONTRAST [CT] Stat Exams 07/07/20 13:39 Completed FACIAL BONES WO CONTRAST [CT] Stat Exams 07/07/20 13:39 Completed HEAD WITHOUT CONTRAST [CT] Stat Exams 07/07/20 13:39 Completed KNEE (MIN 4 VIEW) Stat Exams 07/07/20 14:03 Completed WRIST (MIN 3 VIEWS) Stat Exams 07/07/20 14:03 Completed Medication Summary Discontinued Medications Generic Name Dose Route Start Last Admin Trade Name Bassem PRN Reason Stop Dose Admin Diphtheria/Tetanus/Acell Pertussis 0.5 ml 07/07/20 13:40 07/07/20 13:47 Adacel Vial IM 07/07/20 13:41 0.5 ml .ONCE ONE Administration Diphtheria/Tetanus/Acell Pertussis Confirm 07/07/20 13:46 Adacel Vial Administered 07/07/20 13:47 Dose 0.5 ml IM .STK-MED ONE - Progress Progress: improved, pain not gone completely, re-examined Progress Note: 07/07/20 14:57 75 years old is evaluated after trip and fall with injury to left head/face/wrist and knee. Tetanus is updated. She is offered pain medication but refused. I have obtained CT head neck and facial bones with no acute findings related to trauma. X-rays left wrist and knee are negative for any acute findings. She has some swelling left knee, is bandage applied. Recommended taking Tylenol as needed for pain. Weightbearing as tolerated. Outpatient follow-up. Discussed signs symptoms of worsening needing return to [facility] which she seems understanding. It was a clearly mechanical fall and do not think patient needs further work-up and is stable for discharge. Counseled pt/family regarding: diagnosis, need for follow-up, rad results - Departure Departure Disposition: Home Clinical Impression: Contusion of face Qualifiers: Encounter type: initial encounter Qualified Code(s): S00.83XA - Contusion of other part of head, initial encounter Wrist strain Qualifiers: Encounter type: initial encounter Laterality: left Qualified Code(s): S66.912A - Strain of unspecified muscle, fascia and tendon at wrist and hand level, left hand, initial encounter Contusion of knee, left Qualifiers: Encounter type: initial encounter Qualified Code(s): S80.02XA - Contusion of left knee, initial encounter Fall Qualifiers: Encounter type: initial encounter Qualified Code(s): W19.XXXA - Unspecified fall, initial encounter Condition: Stable Critical Care Time: No Referrals: SARAH SMITH MD [Primary Care Provider] - Follow Up with PCP/3 days Instructions: Contusion (DC), Preventing Falls Additional Instructions: Tylenol as needed for pain. Weightbearing as tolerated. Follow-up with your primary care physician for reevaluation. Return to ER for any worsening. Apply ice on left wrist and knee intermittently.
--- NOTE | 2020-07-07 14:50 | XRAY ---
Indication: Left periorbital swelling and bruising following fall. Multiple contiguous axial images obtained through the cervical spine. Sagittal and coronal reformatted images obtained. Comparison: March 18, 2020. Axial images remain negative for acute fracture, suspicious bony lesions, or spinal canal stenosis. Stable C5-C6 degenerative endplate spurring, moderate multilevel bilateral degenerative facet hypertrophy, and moderate atlantoaxial degenerative changes. Sagittal and coronal reformatted images again demonstrates mild cervical lordotic reversal, positional versus paraspinal spasm. Stable C5-C7 disc space loss and minimal degenerative anterolisthesis of C3 on C4 on C5. No acute compression fracture or jumped facet. Normal appearing craniocervical junction. Visualized noncontrasted soft tissues demonstrates stable minimal bilateral carotid calcifications. Lung apices are clear. CT head and CT facial bones reported separately. Impression: 1. Again cervical lordotic reversal, positional versus paraspinal spasm. 2. Negative for acute fracture/subluxation. 3. Stable multilevel degenerative spondylosis including minimal grade 1 spondylolisthesis of C3-C4-C5.
[2020-07-07 15:26] VITALS: BP 166/89; PULSE 63
== END 2020-07-07 15:26 | disposition home or self-care (01) ==
LOC: ED 13:07
DX: S66.912A Strain of unspecified muscle, fascia and tendon at wrist and hand level, left hand, initial encounter (principal); S80.02XA Contusion of left knee, initial encounter; W19.XXXA Unspecified fall, initial encounter; Z79.899 Other long term (current) drug therapy; I10 Essential (primary) hypertension; E11.9 Type 2 diabetes mellitus without complications; I25.2 Old myocardial infarction
CPT/HCPCS: 70450; 70486; 72125; 73110; 73564; 90471; 90715; 99284

== ENCOUNTER 2023-03-29 21:10 | Emergency (ER) | payer MEDICARE ==
[2023-03-29] MEDS ORDERED: DUONEB 0.5-3 MG/3 ml Neb IH ONE ×2 (21:25→21:53)
[2023-03-29] MEDS ORDERED: solu-MEDROL 125 MG, Sterile H2O 10 ml 10 ML IV ONE ×2 (21:25)
[2023-03-29] MEDS ORDERED: Sodium Chloride 0.9% 1000 ML 1,000 ML IV SCH (21:30)
--- NOTE | 2023-03-29 21:37 | ERPHSYRPT ---
- History of Present Illness Time Seen by Provider: 03/29/23 21:36 Source: patient Exam Limitations: no limitations Patient Subjective Stated Complaint: pt reports shortness of breath, states she feels like her throat is closing up, reports she did get some relief with her albuterol inhaler but it was brief Triage Nursing Assessment: pt is aox3, afebrile, resps easy and non labored, pt lung sounds are clear, pt with good air movement, radial pulses strong and equal, cap refill < 3 seconds, pt skin pink warm dry. Physician History: pt reports shortness of breath, states she feels like her throat is closing up, reports she did get some relief with her albuterol inhaler but it was brief Timing/Duration: today Possible Cause: occasional episodes Associated Symptoms: denies symptoms Allergies/Adverse Reactions: cephalexin monohydrate [From Keflex] Allergy (Unknown, Verified 03/29/23 21:29) erythromycin base [Erythromycin Base] Allergy (Unknown, Verified 03/29/23 21:29) Sulfa (Sulfonamide Antibiotics) [Sulfa(Sulfonamide Antibiotics)] Allergy (Unknown, Verified 03/29/23 21:29) doxycycline Allergy (Verified 03/29/23 21:29) betamethasone [From Celestone] Adverse Reaction (Unknown, Verified 03/29/23 2 1:29) tired/"doenst feel well" betamethasone sodium phosphate [From Celestone] Adverse Reaction (Unknown, Verified 03/29/23 21:29) tired/"doenst feel well" brompheniramine maleate [From Dimetapp Allergy] Adverse Reaction (Unknown, Verified 03/29/23 21:29) codeine [Codeine] Adverse Reaction (Unknown, Verified 03/29/23 21:29) phenylpropanolamine HCl [From Dimetapp Allergy] Adverse Reaction (Unknown, Verified 03/29/23 21:29) Home Medications: Aspirin 81 mg PO DAILY 09/17/14 [History] Metformin HCl 500 mg [Glucophage 500 MG] 1,000 mg PO DAILY 09/17/14 [Hi story] Nebivolol HCl [Bystolic] 10 mg PO DAILY 09/17/14 [History] Carboxymethylcellulose Sodium [Thera Tears] 1 - 2 drop OP Q2H/PRN PRN 10/25/15 [History] Lisinopril 20 mg [Zestril 20 MG] 20 mg PO DAILY 10/25/15 [History] Nitroglycerin 0.4 mg (Ed) [Nitrostat 0.4 MG (ED)] 0.4 mg SL UD 10/25/15 [History] Glipizide [Glipizide ER] 1 tab PO DAILY 09/06/19 [History] Hx Tetanus, Diphtheria Vaccination/Date Given: Yes Hx Influenza Vaccination/Date Given: No Hx Pneumococcal Vaccination/Date Given: Yes Immunizations Up to Date: Yes Travel Risk - International Travel Have you traveled outside of the country in past 3 weeks: No - Coronavirus Screening Are you exhibiting any of the following symptoms?: No Close contact with a COVID-19 positive Pt in past 14-21 Days: No - Vaccine Status Have you recieved a Covid-19 vaccination: No - Review of Systems Constitutional: No Fever, No Chills Eyes: No Symptoms Ears, Nose, & Throat: No Symptoms, Throat Swelling Respiratory: No Cough, No Dyspnea Cardiac: No Chest Pain, No Edema, No Syncope Abdominal/Gastrointestinal: No Abdominal Pain, No Nausea, No Vomiting, No Diarrhea Genitourinary Symptoms: No Dysuria Musculoskeletal: No Back Pain, No Neck Pain Skin: No Rash Neurological: No Dizziness, No Focal Weakness, No Sensory Changes Psychological: No Symptoms Endocrine: No Symptoms All Other Systems: Reviewed and Negative - Past Medical History Pertinent Past Medical History: Yes Neurological History: No Pertinent History ENT History: Cataracts Cardiac History: High Cholesterol, Hypertension, Myocardial Infarction (NH) Respiratory History: Asthma Endocrine Medical History: Diabetes Type II Musculoskeletal History: Arthritis, Fractures GI Medical History: Colitis, Hemorrhoids, Polyps History: No Pertinent History Psycho-Social History: Depression Female Reproductive Disorders: No Pertinent History Other Medical History: Previous fx in foot - Past Surgical History Past Surgical History: Yes Neuro Surgical History: No Pertinent History Cardiac: Cardiac Catheterization Respiratory: No Pertinent History Gastrointestinal: Appendectomy Genitourinary: No Pertinent History Musculoskeletal: Joint Replacement, Orthopedic Surgery Female Surgical History: Hysterectomy Other Surgical History: bilateral knee replacements, knee surgeries and arthroscopies.,. artifical lens to lilli eyes - Social History Smoking Status: Never smoker Exposure to second hand smoke: No Drug Use: none Patient Lives Alone: No - Nursing Vital Signs Nursing Vital Signs: Initial Vital Signs Temperature 98.1 F 03/29/23 21:11 Pulse Rate 70 03/29/23 21:11 Respiratory Rate 18 03/29/23 21:11 Blood Pressure 170/93 03/29/23 21:11 O2 Sat by Pulse Oximetry 99 03/29/23 21:11 Pain Scale Pain Intensity 0 - Physical Exam General Appearance: no apparent distress, alert Eye Exam: PERRL/EOMI Neck Exam: normal inspection, supple Respiratory Exam: normal breath sounds Cardiovascular/Chest Exam: normal heart sounds, regular rate/rhythm Abdominal/Gastrointestinal Exam: soft, No tenderness, No distention, No mass Extremity Exam: non-tender, normal range of motion, normal inspection, no calf tenderness, no pedal edema Neurologic Exam: alert, oriented x 3, cooperative, 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, sensation nml, No motor deficits Skin Exam: normal color, warm, No dry SpO2 Interpretation: normal SpO2: 99 O2 Delivery: Room Air - Course Nursing assessment & vital signs reviewed: Yes - Radiology Exams Chest X-ray Interpretation: Reviewed by me, Negative - CT Exams Chest CT Interpretation: Tele-radiologist Report, No PE Ordered Tests: Active Orders 24 hr Category Date Time Status Postdoctoral Scientist STAT Care 03/29/23 21:27 Active EKG-ER Only STAT Care 03/29/23 21:25 Active IV Insertion STAT Care 03/29/23 21:40 Active CHEST 2 VIEWS (PA AND LAT) Stat Exams 03/29/23 21:26 Taken CHEST WITH CONTRAST [CT] Stat Exams 03/29/23 22:33 Completed CBC W DIFF Stat Lab 03/29/23 22:04 Completed CMP Stat Lab 03/29/23 22:04 Completed D-DIMER QUANTITATIVE Stat Lab 03/29/23 22:04 Completed MAGNESIUM Stat Lab 03/29/23 22:04 Completed NT PRO BNPII Stat Lab 03/29/23 22:04 Completed TROPONIN Stat Lab 03/29/23 22:04 Completed Medication Summary Generic Name Dose Route Start Last Admin Trade Name Freq PRN Reason Stop Dose Admin Sodium Chloride 1,000 mls @ 50 mls/hr 03/29/23 21:30 03/29/23 22:04 Sodium Chloride 0.9% 1000 Ml IV 04/28/23 21:29 50 mls/hr .Q20H JEROME Administration Discontinued Medications Generic Name Dose Route Start Last Admin Trade Name Bassem PRN Reason Stop Dose Admin Albuterol/Ipratropium 3 ml 03/29/23 21:25 03/29/23 21:45 Ipratropium/Albuterol Sulfate 3 Ml Ampul.Neb IH 03/29/23 21:26 3 ml STAT ONE Administration Albuterol/Ipratropium Confirm 03/29/23 21:53 Ipratropium/Albuterol Sulfate 3 Ml Ampul.Neb Administered 03/29/23 21:54 Dose 3 ml IH .STK-MED ONE Methylprednisolone Sodium 0 mg 03/29/23 21:25 03/29/23 22:05 Succinate 125 mg/ Sterile IV 03/29/23 21:26 125 mg Water 10 ml STAT ONE Administration Sodium Chloride 1,000 mls @ 999 mls/hr 03/29/23 22:46 03/29/23 22:54 Sodium Chloride 0.9% 1000 Ml IV 03/29/23 23:46 Not Given .Q1H1M STA Magnesium Sulfate/Water 2 gm in 50 mls @ 100 mls/hr 03/29/23 23:16 03/30/23 00:13 Magnesium Sulf 2 G/50 Ml Bag IV 03/29/23 23:45 Infused ONCE ONE Infusion Magnesium Sulfate/Water Confirm 03/29/23 23:26 Magnesium Sulf 2 G/50 Ml Bag Administered 03/29/23 23:27 Dose 2 gm in 50 mls @ ud IV .STK-MED ONE Methylprednisolone Sodium Succinate Confirm 03/29/23 21:58 Methylprednis Sod Succ 125 Mg/2 Ml Vial Administered 03/29/23 21:59 Dose 125 mg .ROUTE .STK-MED ONE Sterile Water Confirm 03/29/23 21:58 Water For Injection,Sterile 10 Ml Vial Administered 03/29/23 21:59 Dose 10 ml IJ .STK-MED ONE Lab/Rad Data: Laboratory Result Diagrams 03/29/23 22:04 03/29/23 22:04 Laboratory Results 03/29/23 03/29/23 03/29/23 Range/Units 22:04 22:04 22:04 WBC (4.0-10.5) x10^3/uL RBC (4.1-5.4) x10^6/uL Hgb (12.0-16.0) g/dL Hct (35-47) % MCV (78-100) fL MCH (26-32) pg MCHC (32-36) g/dL RDW (11.5-14.0) % Plt Count (150-450) x10^3/uL MPV (7.5-11.0) fL Gran % (36.0-66.0) % Immature Gran % (Auto) (0.00-0.4) % Nucleat RBC Rel Count (0.00-0.1) % Eos # (Auto) (0-0.5) x10^3/uL Immature Gran # (Auto) (0.00-0.03) x10^3u/L Absolute Lymphs (auto) (1.0-4.6) x10^3/uL Absolute Monos (auto) (0.0-1.3) x10^3/uL Absolute Nucleated RBC (0.00-0.01) x10^3u/L Lymphocytes % (24.0-44.0) % Monocytes % (0.0-12.0) % Eosinophils % (0.00-5.0) % Basophils % (0.0-0.4) % Absolute Granulocytes (1.4-6.9) x10^3/uL Basophils # (0-0.4) x10^3/uL D-Dimer 1.55 H* (0.0-0.50) mg/L Sodium 140 (137-145) mmol/L Potassium 4.7 (3.5-5.1) mmol/L Chloride 106 (98-107) mmol/L Carbon Dioxide 21 L (22-30) mmol/L Anion Gap 17.6 H (5-15) MEQ/L BUN 31 H (7-17) mg/dL Creatinine 1.16 H (0.52-1.04) mg/dL Estimated GFR 48.0 ML/MIN Glucose 143 H (74-106) mg/dL Calcium 9.4 (8.4-10.2) mg/dL Magnesium 1.5 L (1.6-2.3) mg/dL Total Bilirubin 0.50 (0.2-1.3) mg/dL AST 89 H (14-36) U/L ALT 61 H (0-35) U/L Alkaline Phosphatase 57 (38-126) U/L Troponin I < 0.012 (0.000-0.034) ng/mL NT-Pro-B Natriuret Pep 569 (<300) pg/mL Serum Total Protein 8.0 (6.3-8.2) g/dL Albumin 4.2 (3.5-5.0) g/dL 03/29/23 Range/Units 22:04 WBC 8.6 (4.0-10.5) x10^3/uL RBC 4.39 (4.1-5.4) x10^6/uL Hgb 13.6 (12.0-16.0) g/dL Hct 42.4 (35-47) % MCV 96.6 (78-100) fL MCH 31.0 (26-32) pg MCHC 32.1 (32-36) g/dL RDW 13.5 (11.5-14.0) % Plt Count 210 (150-450) x10^3/uL MPV 11.2 H (7.5-11.0) fL Gran % 44.2 (36.0-66.0) % Immature Gran % (Auto) 0.7 H (0.00-0.4) % Nucleat RBC Rel Count 0.0 (0.00-0.1) % Eos # (Auto) 0.30 (0-0.5) x10^3/uL Immature Gran # (Auto) 0.06 H (0.00-0.03) x10^3u/L Absolute Lymphs (auto) 3.59 (1.0-4.6) x10^3/uL Absolute Monos (auto) 0.82 (0.0-1.3) x10^3/uL Absolute Nucleated RBC 0.00 (0.00-0.01) x10^3u/L Lymphocytes % 41.6 (24.0-44.0) % Monocytes % 9.5 (0.0-12.0) % Eosinophils % 3.5 (0.00-5.0) % Basophils % 0.5 (0.0-0.4) % Absolute Granulocytes 3.82 (1.4-6.9) x10^3/uL Basophils # 0.04 (0-0.4) x10^3/uL D-Dimer (0.0-0.50) mg/L Sodium (137-145) mmol/L Potassium (3.5-5.1) mmol/L Chloride (98-107) mmol/L Carbon Dioxide (22-30) mmol/L Anion Gap (5-15) MEQ/L BUN (7-17) mg/dL Creatinine (0.52-1.04) mg/dL Estimated GFR ML/MIN Glucose (74-106) mg/dL Calcium (8.4-10.2) mg/dL Magnesium (1.6-2.3) mg/dL Total Bilirubin (0.2-1.3) mg/dL AST (14-36) U/L ALT (0-35) U/L Alkaline Phosphatase (38-126) U/L Troponin I (0.000-0.034) ng/mL NT-Pro-B Natriuret Pep (<300) pg/mL Serum Total Protein (6.3-8.2) g/dL Albumin (3.5-5.0) g/dL - Progress Progress: improved Blood Culture(s) Obtained: No Antibiotics given: No Counseled pt/family regarding: lab results, diagnosis, need for follow-up, rad results Medical Desision Making - Diagnostic Testing Diagnostic test were ordered, analyzed, and reviewed by me: Yes Radiological Interpretation: Teleradiologist Report - Risk of complications The pt has a mod risk of morbidity or mortality based on: Diagnosis or treatment limited by SDOH - Departure Departure Disposition: Home Clinical Impression: Elevated d-dimer Dyspnea Qualifiers: Dyspnea type: unspecified Qualified Code(s): R06.00 - Dyspnea, unspecified Condition: Stable Critical Care Time: Yes Critical Care Time(excluding separately billable procedures): Critical 30-74 mins Referrals: SARAH SMITH MD [Primary Care Provider] - Follow Up with PCP/3 days Instructions: Shortness of Breath (Dyspnea) (DC) Additional Instructions: Discharge/Care Plan Do not take Metformin for 3 days TOM KIM AUGUSTO was seen on 03/30/23 in the Emergency Room. The patient was counseled regarding Diagnosis,Lab results, Imaging studies, need for follow up and when to return to the Emergency Room. Prescriptions given: Discharge Note I have spoken with the patient and/or caregivers. I have explained the patient's condition, diagnosis and treatment plan based on the information available to me at this time. I have answered the patient's and/or caregiver's questions and addressed any concerns. The patient and/or caregivers have as good understanding of the patient's diagnosis, condition and treatment plan as can be expected at this point. The vital signs have been stable. The patient's condition is stable and appropriate for discharge from the emergency department. The patient will pursue further outpatient evaluation with the primary care physician or other designated or consulting physician as outlined in the discharge instructions. The patient and/or caregivers are agreeable to this plan of care and follow-up instructions have been explained in detail. The patient and/or caregivers have received these instruction. The patient/and or caregivers are aware that any significant change in condition or worsening of symptoms should prompt an immediate return to this or the closest emergency department or call 911. Discharge/Care Plan TOM KIM was seen on 03/30/23 in the Emergency Room. The patient was counseled regarding Diagnosis,Lab results, Imaging studies, need for follow up and when to return to the Emergency Room. Prescriptions given: Discharge Note I have spoken with the patient and/or caregivers. I have explained the patient's condition, diagnosis and treatment plan based on the information available to me at this time. I have answered the patient's and/or caregiver's questions and addressed any concerns. The patient and/or caregivers have as good understanding of the patient's diagnosis, condition and treatment plan as can be expected at this point. The vital signs have been stable. The patient's condition is stable and appropriate for discharge from the emergency department. The patient will pursue further outpatient evaluation with the primary care physician or other designated or consulting physician as outlined in the discharge instructions. The patient and/or caregivers are agreeable to this plan of care and follow-up instructions have been explained in detail. The patient and/or caregivers have received these instruction. The patient/and or caregivers are aware that any significant change in condition or worsening of symptoms should prompt an immediate return to this or the closest emergency department or call 911. TOM KIM was seen on 03/30/23 n the Emergency Room. At that time you were treated for an emergent condition, during your visit Laboratory, Radiology and/or other procedures may have been ordered. It is very important that you follow-up with your Primary Care Physician SARAH SMITH within the next 24-48 hours to review your Emergency Room visit and the final results of testing that was ordered. Some test results such as Urine Cultures, Blood Cultures, and other cultures if ordered will not be finalized for 24-48 hours. If you do not have a Primary Care Provider please call the medical records department at [phone] ext [phone] to obtain a copy of your results or you may sign into our patient portal to obtain these results by visiting us [email or web address] u and completing the following steps: 1. Click on the Patient Portal link 2. Click the Patient Self Enrollment Link to complete the enrollment form and entering your 3. Once the enrollment form is completed you will receive an email with a temporary ID and password at the email address you provided. 4. Next choose a user name and password. Your user name must be at least 4 characters long and your password must be at least 4 characters long. 5. Choose a security question from the list and provide your answer to the question. If you already have signed into the Health Portal you may access your Health Care Information 28/04 by the following steps: 1. Login to our website @ [email or web address] 2. Enter your original user name and password. FAQS The [facility] Health Portal is an online tool that contains your Lab Results, Radiology Reports, Visit History, Discharge Instructions and Health Summary Lab and Radiology Results will not be available for 72 hours on the portal. The Portal is a secure site, passwords are encryted and URLs are re-written so they cannot be copied and pasted. You and authorized family members are the only ones who can access your Portal. Also there is a timeout feature that protects your information if you leave the Portal page open. If you have technical difficulty please use the Contact Us link on the page this will allow you to submit any questions you have regarding the Portal or you may contact the Medical Record Department at [phone].
[2023-03-29] MEDS ORDERED: solu-MEDROL ONE (21:58)
[2023-03-29] MEDS ORDERED: Sodium Chloride 0.9% 1000 ML 1,000 ML ONE (21:58)
[2023-03-29] MEDS ORDERED: Sterile H2O 10 ml IJ ONE (21:58)
[2023-03-29 22:07] LABS: Absolute Neutrophil Ct (ANC) 3.82 x10^3/uL (1.4-6.9); BASOPHIL % 0.5 % (0.0-0.4); Basophil (Absolute #) 0.04 x10^3/uL (0-0.4); Eosinophil % 3.5 % (0.00-5.0); Hematocrit 42.4 % (35-47); Hemoglobin 13.6 g/dL (12.0-16.0); IMMATURE GRAN # 0.06 x10^3u/L (0.00-0.03); IMMATURE GRAN % 0.7 % (0.00-0.4); Lymphocyte (Absolute #) 3.59 x10^3/uL (1.0-4.6); Lymphocytes % 41.6 % (24.0-44.0); Mean Cell Volume 96.6 fL (78-100); Mean Corpuscular Hgb Concent. 32.1 g/dL (32-36); Mean Platelet Volume 11.2 fL (7.5-11.0); Monocyte (Absolute #) 0.82 x10^3/uL (0.0-1.3); Monocytes % 9.5 % (0.0-12.0); Neutrophil % 44.2 % (36.0-66.0); Platelet Count 210 x10^3/uL (150-450); Red Blood Count 4.39 x10^6/uL (4.1-5.4); Red Cell Distribution Width 13.5 % (11.5-14.0); White Blood Count 8.6 x10^3/uL (4.0-10.5)
[2023-03-29 22:32] LABS: ALBUMIN 4.2 g/dL (3.5-5.0); ALKALINE PHOSPHATASE 57 U/L (38-126); ANION GAP 17.6 MEQ/L (5-15); BLOOD UREA NITROGEN 31 mg/dL (7-17); CHLORIDE 106 mmol/L (98-107); Calcium 9.4 mg/dL (8.4-10.2); Carbon Dioxide 21 mmol/L (22-30); Creatinine 1 1.16 mg/dL (0.52-1.04); Glucose 143 mg/dL (74-106); MAGNESIUM 1.5 mg/dL (1.6-2.3); Potassium 4.7 mmol/L (3.5-5.1); SGOT/AST 89 U/L (14-36); SGPT/ALT 61 U/L (0-35); SODIUM 140 mmol/L (137-145); TROPONIN < 0.012 ng/mL (0.000-0.034)
[2023-03-29] MEDS ORDERED: Sodium Chloride 0.9% 1000 ML 1,000 ML IV STA (22:46)
[2023-03-29] MEDS ORDERED: MAGNESIUM SULF 2 G/50 ML BAG 2 GM/50 ML PIGGYBACK IV ONE ×2 (23:16→23:26)
[2023-03-30 01:00] VITALS: O2SAT 99
--- NOTE | 2023-03-30 01:49 | XRAY ---
CLINICAL HISTORY:shortness of breath COMPARISON:CT dated 12/14/2019. TECHNIQUES:Contiguous axial CT images of the chest were acquired with the administration of intravenous contrast. Coronal and sagittal reconstructions were also obtained; FINDINGS: No evidence of acute thromboembolism in the visualized pulmonary arteries. Mild fibrotic changes are seen in basal regions of both lungs with osteophyte related fibrosis in the medial basal segment of the right lower lobe. Mild cardiomegaly noted. No free or encysted pleural effusion. No pericardial effusion. No pathologically enlarged mediastinal, hilar or axillary lymph node is identified. The thoracic spine shows degenerative changes. There is no definite mass lesion in the chest wall. Small hiatal hernia is seen. Scanned upper abdomen is unremarkable. IMPRESSION: No evidence of acute thromboembolism in the visualized pulmonary arteries. Mild fibrotic changes in basal regions of both lungs as mentioned above. Mild cardiomegaly. No significant interval changes seen since previous study dated 12/14/2019. Electronically Signed by: Josias Shaver MD. (03/30/2023 00:45:29 DRY CURER)
[2023-03-30 02:10] VITALS: BP 122/81; PULSE 64
--- NOTE | 2023-03-30 08:02 | XRAY ---
Indication: Short of breath. Comparison: December 14, 2019 PA/lateral chest inflated with new minimal left base subsegmental atelectasis/scarring. No focal infiltrate, consolidation, or large effusion. Heart not enlarged. Bony thorax intact again with osteopenia, mild degenerative changes, and minimal dextroscoliosis. Impression: Nonacute chest with chronic features.
== END 2023-03-30 02:09 | disposition home or self-care (01) ==
LOC: ED 21:10
DX: R79.1 Abnormal coagulation profile (principal); R06.00 Dyspnea, unspecified; R06.02 Shortness of breath; E78.5 Hyperlipidemia, unspecified; I10 Essential (primary) hypertension; E11.9 Type 2 diabetes mellitus without complications; Z79.84 Long term (current) use of oral hypoglycemic drugs; Z79.899 Other long term (current) drug therapy; Z28.310 Unvaccinated for COVID-19
CPT/HCPCS: 36000; 36415; 71046; 71260; 80053; 83735; 83880; 84484; 85025; 85379; 93005; 93041; 94640; 96365; 96374; 99284; 99291; J2930; A9270-GY; J3475

== ENCOUNTER 2024-01-11 11:21 | Observation (INO) | payer MEDICARE ==
[2024-01-11 11:59] LABS: Absolute Neutrophil Ct (ANC) 4.17 x10^3/uL (1.4-6.9); BASOPHIL % 0.6 % (0.0-0.4); Basophil (Absolute #) 0.05 x10^3/uL (0-0.4); Eosinophil % 2.8 % (0.00-5.0); Eosinophil (Absolute #) 0.25 x10^3/uL (0-0.5); Hematocrit 44.4 % (35-47); Hemoglobin 14.6 g/dL (12.0-16.0); IMMATURE GRAN # 0.05 x10^3u/L (0.00-0.03); IMMATURE GRAN % 0.6 % (0.00-0.4); Lymphocyte (Absolute #) 3.69 x10^3/uL (1.0-4.6); Mean Cell Volume 95.7 fL (78-100); Mean Corpuscular Hemoglobin 31.5 pg (26-32); Mean Corpuscular Hgb Concent. 32.9 g/dL (32-36); Mean Platelet Volume 11.7 fL (7.5-11.0); Monocyte (Absolute #) 0.58 x10^3/uL (0.0-1.3); Monocytes % 6.6 % (0.0-12.0); Neutrophil % 47.4 % (36.0-66.0); Platelet Count 198 x10^3/uL (150-450); Red Blood Count 4.64 x10^6/uL (4.1-5.4); Red Cell Distribution Width 13.2 % (11.5-14.0); White Blood Count 8.8 x10^3/uL (4.0-10.5)
[2024-01-11] MEDS: Sodium Chloride 0.9% 1000 ML 1,000 ML IV SCH ×2 (12:01→20:57)
[2024-01-11 12:07] LABS: BILIRUBIN,TOTAL 0.6 mg/dL (0.2-1.3); Calcium 9.6 mg/dL (8.4-10.2); Creatinine 1 1.37 mg/dL (0.52-1.04); EST GLOMERULAR FILTRATION RATE 39.3 ML/MIN; Potassium 4.4 mmol/L (3.5-5.1); Total Protein 7.6 g/dL (6.3-8.2)
--- NOTE | 2024-01-11 12:07 | ERPHSYRPT ---
- History of Present Illness Time Seen by Provider: 01/11/24 12:03 Historian: patient, family Exam Limitations: no limitations Patient Subjective Stated Complaint: C/O chest pain that started around 0400 today. Patient states it woke her up out of her sleep, felt like a thump. Now, the pain is a tightness. Triage Nursing Assessment: Patient ambulated back to ER. She is alert and oriented. No cough. No SOB. Skin tone normal. BECERRA WNL. No edema. Physician History: C/O chest pain that started around 0400 today. Patient states it woke her up out of her sleep, felt like a thump. Now, the pain is a tightness. Timing/Duration: today (early AM at around 4 AM) Activities at Onset: sleep Quality: pressure Location: central Chest Pain Radiation: no radiation Severity of Pain-Max: mild Severity of Pain-Current: none Modifying Factors: Improves With: nothing Associated Symptoms: denies symptoms Prior Chest Pain/Cardiac Workup: no prior chest pain Nitro Today/Relief: no nitro taken today Aspirin Treatment Today: no aspirin today Body Map: 1 - area of pain Allergies/Adverse Reactions: cephalexin monohydrate [From Keflex] Allergy (Unknown, Verified 01/11/24 11:23) erythromycin base [Erythromycin Base] Allergy (Unknown, Verified 01/11/24 11:23) Sulfa (Sulfonamide Antibiotics) [Sulfa(Sulfonamide Antibiotics)] Allergy (Unknown, Verified 01/11/24 11:23) doxycycline Allergy (Verified 01/11/24 11:23) betamethasone [From Celestone] Adverse Reaction (Unknown, Verified 01/11/24 11:23) tired/"doenst feel well" betamethasone sodium phosphate [From Celestone] Adverse Reaction (Unknown, Verified 01/11/24 11:23) tired/"doenst feel well" brompheniramine maleate [From Dimetapp Allergy] Adverse Reaction (Unknown, Verified 01/11/24 11:23) codeine [Codeine] Adverse Reaction (Unknown, Verified 01/11/24 11:23) phenylpropanolamine HCl [From Dimetapp Allergy] Adverse Reaction (Unknown, Verified 01/11/24 11:23) Home Medications: Aspirin 81 mg PO DAILY 09/17/14 [History] Nebivolol HCl [Bystolic] 10 mg PO DAILY 09/17/14 [History] Lisinopril 20 mg [Zestril 20 MG] 20 mg PO DAILY 10/25/15 [History] Semaglutide [Ozempic] 1 mg SQ WEEKLY 01/11/24 [History] Hx Tetanus, Diphtheria Vaccination/Date Given: Yes Hx Influenza Vaccination/Date Given: No Hx Pneumococcal Vaccination/Date Given: Yes Immunizations Up to Date: Yes Travel Risk - International Travel Have you traveled outside of the country in past 3 weeks: No - Emerging Infectious Disease Are you exhibiting symptoms associated with any current EIDs: No - Review of Systems Constitutional: No Fever, No Chills Eyes: No Symptoms Ears, Nose, & Throat: No Symptoms Respiratory: No Cough, No Dyspnea Cardiac: Chest Pain, No Edema, No Syncope Abdominal/Gastrointestinal: No Abdominal Pain, No Nausea, No Vomiting, No Diarrhea Genitourinary Symptoms: No Dysuria Musculoskeletal: No Back Pain, No Neck Pain Skin: No Rash Neurological: No Dizziness, No Focal Weakness, No Sensory Changes Psychological: No Symptoms Endocrine: No Symptoms All Other Systems: Reviewed and Negative - Past Medical History Pertinent Past Medical History: Yes Neurological History: No Pertinent History ENT History: Cataracts Cardiac History: High Cholesterol, Hypertension, Myocardial Infarction ([place]) Respiratory History: Asthma Endocrine Medical History: Diabetes Type II Musculoskeletal History: Arthritis, Fractures GI Medical History: Colitis, Hemorrhoids, Polyps History: No Pertinent History Psycho-Social History: Depression Female Reproductive Disorders: No Pertinent History Other Medical History: Previous fx in foot - Past Surgical History Past Surgical History: Yes Neuro Surgical History: No Pertinent History Cardiac: Cardiac Catheterization Respiratory: No Pertinent History Gastrointestinal: Appendectomy Genitourinary: No Pertinent History Musculoskeletal: Joint Replacement, Orthopedic Surgery Female Surgical History: Hysterectomy Other Surgical History: bilateral knee replacements, knee surgeries and arthroscopies.,. artifical lens to lilli eyes - Social History Smoking Status: Never smoker Exposure to second hand smoke: No Drug Use: none Patient Lives Alone: No - Nursing Vital Signs Nursing Vital Signs: Initial Vital Signs Temperature 97.5 F 01/11/24 11:25 Pulse Rate 70 01/11/24 11:25 Respiratory Rate 19 01/11/24 11:25 Blood Pressure 175/90 01/11/24 11:25 O2 Sat by Pulse Oximetry 98 01/11/24 11:25 Pain Scale Pain Intensity 2 - Physical Exam General Appearance: no apparent distress, alert Eye Exam: PERRL/EOMI, eyes nml inspection Ears, Nose, Throat Exam: normal ENT inspection, moist mucous membranes Neck Exam: normal inspection, non-tender, supple, full range of motion Respiratory Exam: normal breath sounds, lungs clear, No respiratory distress Cardiovascular Exam: regular rate/rhythm, normal heart sounds Gastrointestinal/Abdomen Exam: soft, No tenderness, No mass Back Exam: normal inspection, No CVA tenderness, No vertebral tenderness Extremity Exam: normal inspection, normal range of motion Neurologic Exam: alert, oriented x 3, cooperative, normal mood/affect, sensation nml, No motor deficits Skin Exam: normal color, warm, dry SpO2: 98 - Course Nursing assessment & vital signs reviewed: Yes EKG Interpreted by Me: Sinus Rhythm Rhythm Strip: Normal Sinus Rhythm - Radiology Exams Chest X-ray Interpretation: Interpreted by me (normal), Reviewed by me, No Pneumonia, No Pneumothorax Ordered Tests: Active Orders 24 hr Category Date Time Status EKG-ER Only STAT Care 01/11/24 11:49 Active Oxygen-ED Only Nasal Cannula 2 lpm Care 01/11/24 11:49 Active CHEST 2 VIEWS (PA AND LAT) Stat Exams 01/11/24 11:50 Taken CHEST WITH CONTRAST [CT] Stat Exams 01/11/24 12:23 Ordered CBC W DIFF Stat Lab 01/11/24 11:57 Completed CMP Stat Lab 01/11/24 11:57 Completed D-DIMER QUANTITATIVE Stat Lab 01/11/24 11:57 Completed NT PRO BNPII Stat Lab 01/11/24 11:57 Completed TROPONIN Q4H Lab 01/11/24 11:57 Completed TROPONIN Q4H Lab 01/11/24 16:00 Ordered TROPONIN Q4H Lab 01/11/24 20:00 Ordered Medication Summary Generic Name Dose Route Start Last Admin Trade Name Freq PRN Reason Stop Dose Admin Sodium Chloride 1,000 mls @ 50 mls/hr 01/11/24 12:00 01/11/24 12:01 Sodium Chloride 0.9% 1000 Ml IV 02/10/24 11:59 50 mls/hr .Q20H JEROME Administration Lab/Rad Data: Laboratory Result Diagrams 01/11/24 11:57 01/11/24 11:57 Laboratory Results 01/11/24 01/11/24 01/11/24 Range/Units 11:57 11:57 11:57 WBC (4.0-10.5) x10^3/uL RBC (4.1-5.4) x10^6/uL Hgb (12.0-16.0) g/dL Hct (35-47) % MCV (78-100) fL MCH (26-32) pg MCHC (32-36) g/dL RDW (11.5-14.0) % Plt Count (150-450) x10^3/uL MPV (7.5-11.0) fL Gran % (36.0-66.0) % Immature Gran % (Auto) (0.00-0.4) % Nucleat RBC Rel Count (0.00-0.1) % Eos # (Auto) (0-0.5) x10^3/uL Immature Gran # (Auto) (0.00-0.03) x10^3u/L Absolute Lymphs (auto) (1.0-4.6) x10^3/uL Absolute Monos (auto) (0.0-1.3) x10^3/uL Absolute Nucleated RBC (0.00-0.01) x10^3u/L Lymphocytes % (24.0-44.0) % Monocytes % (0.0-12.0) % Eosinophils % (0.00-5.0) % Basophils % (0.0-0.4) % Absolute Granulocytes (1.4-6.9) x10^3/uL Basophils # (0-0.4) x10^3/uL D-Dimer 2.98 H* (0.0-0.50) mg/L Sodium 140 (135-145) mmol/L Potassium 4.4 (3.5-5.1) mmol/L Chloride 108 H (98-107) mmol/L Carbon Dioxide 23 (22-30) mmol/L Anion Gap 13.0 (5-15) MEQ/L BUN 28 H (7-17) mg/dL Creatinine 1.37 H (0.52-1.04) mg/dL Estimated GFR 39.3 ML/MIN Glucose 159 H (74-106) mg/dL Calcium 9.6 (8.4-10.2) mg/dL Total Bilirubin 0.60 (0.2-1.3) mg/dL AST 46 H (14-36) U/L ALT 34 (0-35) U/L Alkaline Phosphatase 62 (38-126) U/L Troponin I < 0.012 (0.000-0.033) ng/mL NT-Pro-B Natriuret Pep 341 (<300) pg/mL Serum Total Protein 7.6 (6.3-8.2) g/dL Albumin 4.0 (3.5-5.0) g/dL 01/11/24 Range/Units 11:57 WBC 8.8 (4.0-10.5) x10^3/uL RBC 4.64 (4.1-5.4) x10^6/uL Hgb 14.6 (12.0-16.0) g/dL Hct 44.4 (35-47) % MCV 95.7 (78-100) fL MCH 31.5 (26-32) pg MCHC 32.9 (32-36) g/dL RDW 13.2 (11.5-14.0) % Plt Count 198 (150-450) x10^3/uL MPV 11.7 H (7.5-11.0) fL Gran % 47.4 (36.0-66.0) % Immature Gran % (Auto) 0.6 H (0.00-0.4) % Nucleat RBC Rel Count 0.0 (0.00-0.1) % Eos # (Auto) 0.25 (0-0.5) x10^3/uL Immature Gran # (Auto) 0.05 H (0.00-0.03) x10^3u/L Absolute Lymphs (auto) 3.69 (1.0-4.6) x10^3/uL Absolute Monos (auto) 0.58 (0.0-1.3) x10^3/uL Absolute Nucleated RBC 0.00 (0.00-0.01) x10^3u/L Lymphocytes % 42.0 (24.0-44.0) % Monocytes % 6.6 (0.0-12.0) % Eosinophils % 2.8 (0.00-5.0) % Basophils % 0.6 (0.0-0.4) % Absolute Granulocytes 4.17 (1.4-6.9) x10^3/uL Basophils # 0.05 (0-0.4) x10^3/uL D-Dimer (0.0-0.50) mg/L Sodium (135-145) mmol/L Potassium (3.5-5.1) mmol/L Chloride (98-107) mmol/L Carbon Dioxide (22-30) mmol/L Anion Gap (5-15) MEQ/L BUN (7-17) mg/dL Creatinine (0.52-1.04) mg/dL Estimated GFR ML/MIN Glucose (74-106) mg/dL Calcium (8.4-10.2) mg/dL Total Bilirubin (0.2-1.3) mg/dL AST (14-36) U/L ALT (0-35) U/L Alkaline Phosphatase (38-126) U/L Troponin I (0.000-0.033) ng/mL NT-Pro-B Natriuret Pep (<300) pg/mL Serum Total Protein (6.3-8.2) g/dL Albumin (3.5-5.0) g/dL - Progress Progress: improved Discussed with : Other (Telehospitalist) Will see patient in: hospital (observation) Medical Desision Making - Independent Historian Additional History obtained from: Family - Discussion of managment Care discussed with:: hospitalist Reviewed:: Need for additional workup Agreed on:: place in obs Will see patient: in hospital - Diagnostic Testing Diagnostic test were ordered, analyzed, and reviewed by me: Yes Radiological Interpretation: Interpreted by me, Reviewed by me - Risk of complications The pt has a mod risk of morbidity or mortality based on: Diagnosis or treatment limited by SDOH - Departure Departure Disposition: Observation Clinical Impression: Elevated d-dimer, Chest pain, rule out acute myocardial infarction Condition: Fair Critical Care Time: Yes Critical Care Time(excluding separately billable procedures): Critical 30-74 mins Referrals: SARAH SMITH MD [Primary Care Provider] - Follow up/PCP as directed
[2024-01-11 12:18] LABS: NT PRO BNPII 341 pg/mL (<300); TROPONIN < 0.012 ng/mL (0.000-0.033)
--- NOTE | 2024-01-11 12:55 | PCM.HP ---
History of Present Illness - Chief Complaint Chief Complaint: CHest Pain Date: 01/11/24 History of Present Illness: is a 78 year old female. Medications & Allergies Home Medications: Home Medication List Aspirin 81 mg PO DAILY 09/17/14 [History Confirmed 01/11/24] Nebivolol HCl [Bystolic] 10 mg PO DAILY 09/17/14 [History Confirmed 01/11/24] Lisinopril 20 mg [Zestril 20 MG] 20 mg PO DAILY 10/25/15 [History Confirmed 01/11/24] Semaglutide [Ozempic] 1 mg SQ WEEKLY 01/11/24 [History Confirmed 01/11/24] Allergies/Adverse Reactions: Allergies Allergy/AdvReac Type Severity Reaction Status Date / Time cephalexin monohydrate Allergy Unknown Verified 01/11/24 11:23 [From Keflex] erythromycin base Allergy Unknown Verified 01/11/24 11:23 [Erythromycin Base] Sulfa (Sulfonamide Allergy Unknown Verified 01/11/24 11:23 Antibiotics) [Sulfa(Sulfonamide Antibiotics)] doxycycline Allergy Verified 01/11/24 11:23 betamethasone AdvReac Unknown tired/"doenst Verified 01/11/24 11:23 [From Celestone] feel well" betamethasone sodium AdvReac Unknown tired/"doenst Verified 01/11/24 11:23 phosphate feel well" [From Celestone] brompheniramine maleate AdvReac Unknown Verified 01/11/24 11:23 [From Dimetapp Allergy] codeine [Codeine] AdvReac Unknown Verified 01/11/24 11:23 phenylpropanolamine HCl AdvReac Unknown Verified 01/11/24 11:23 [From Dimetapp Allergy] - Past Medical History Past Medical History: Yes Neurological History: No Pertinent History ENT History: Cataracts Cardiac History: High Cholesterol, Hypertension, Myocardial Infarction ([place]) Respiratory History: Asthma Endocrine Medical History: Diabetes Type II Musculoskelatal History: Arthritis, Fractures GI Medical History: Colitis, Hemorrhoids, Polyps History: No Pertinent History Pyscho-Social History: Depression Reproductive Disorders: No Pertinent History Comment: Previous fx in foot - Past Surgical History Past Surgical History: Yes Neuro Surgical History: No Pertinent History Cardiac History: Cardiac Catheterization Respiratory Surgery: No Pertinent History GI Surgical History: Appendectomy Genitourinary Surgical Hx: No Pertinent History Musculskeletal Surgical Hx: Joint Replacement, Orthopedic Surgery Female Surgical History: Hysterectomy Other Surgical History: bilateral knee replacements, knee surgeries and arthroscopies.,. artifical lens to lilli eyes - Social History Smoking Status: Never smoker Exposure to second hand smoke: No Alcohol: None Drug Use: none - Social Determinants of Health Will the patient participate in the screening: Yes Do you worry about a steady place to live?: No Do you have any problems with any of the following?: No known problems In the past 12 months,have you had to go without utilities?: No Have you or anyone in your house had to go without enough: No Transportation Issues: No Has anyone in your support network made you feel unsafe?: No - Physical Exam Vital Signs: Vital Signs - 24 hr Temp Pulse Resp BP BP Pulse Ox 01/11/24 12:41 98 01/11/24 12:01 55 L 19 157/93 98 01/11/24 11:30 57 L 15 162/94 98 01/11/24 11:25 97.5 F 70 19 175/90 98 Results - Labs Lab/Micro Results: Lab Results-Last 24 Hours 01/11/24 01/11/24 01/11/24 Range/Units 11:57 11:57 11:57 WBC 8.8 (4.0-10.5) x10^3/uL RBC 4.64 (4.1-5.4) x10^6/uL Hgb 14.6 (12.0-16.0) g/dL Hct 44.4 (35-47) % MCV 95.7 (78-100) fL MCH 31.5 (26-32) pg MCHC 32.9 (32-36) g/dL RDW 13.2 (11.5-14.0) % Plt Count 198 (150-450) x10^3/uL MPV 11.7 H (7.5-11.0) fL Gran % 47.4 (36.0-66.0) % Immature Gran % (Auto) 0.6 H (0.00-0.4) % Nucleat RBC Rel Count 0.0 (0.00-0.1) % Eos # (Auto) 0.25 (0-0.5) x10^3/uL Immature Gran # (Auto) 0.05 H (0.00-0.03) x10^3u/L Absolute Lymphs (auto) 3.69 (1.0-4.6) x10^3/uL Absolute Monos (auto) 0.58 (0.0-1.3) x10^3/uL Absolute Nucleated RBC 0.00 (0.00-0.01) x10^3u/L Lymphocytes % 42.0 (24.0-44.0) % Monocytes % 6.6 (0.0-12.0) % Eosinophils % 2.8 (0.00-5.0) % Basophils % 0.6 (0.0-0.4) % Absolute Granulocytes 4.17 (1.4-6.9) x10^3/uL Basophils # 0.05 (0-0.4) x10^3/uL D-Dimer 2.98 H* (0.0-0.50) mg/L Sodium 140 (135-145) mmol/L Potassium 4.4 (3.5-5.1) mmol/L Chloride 108 H (98-107) mmol/L Carbon Dioxide 23 (22-30) mmol/L Anion Gap 13.0 (5-15) MEQ/L BUN 28 H (7-17) mg/dL Creatinine 1.37 H (0.52-1.04) mg/dL Estimated GFR 39.3 ML/MIN Glucose 159 H (74-106) mg/dL Calcium 9.6 (8.4-10.2) mg/dL Total Bilirubin 0.60 (0.2-1.3) mg/dL AST 46 H (14-36) U/L ALT 34 (0-35) U/L Alkaline Phosphatase 62 (38-126) U/L Troponin I (0.000-0.033) ng/mL NT-Pro-B Natriuret Pep (<300) pg/mL Serum Total Protein 7.6 (6.3-8.2) g/dL Albumin 4.0 (3.5-5.0) g/dL 01/11/24 Range/Units 11:57 WBC (4.0-10.5) x10^3/uL RBC (4.1-5.4) x10^6/uL Hgb (12.0-16.0) g/dL Hct (35-47) % MCV (78-100) fL MCH (26-32) pg MCHC (32-36) g/dL RDW (11.5-14.0) % Plt Count (150-450) x10^3/uL MPV (7.5-11.0) fL Gran % (36.0-66.0) % Immature Gran % (Auto) (0.00-0.4) % Nucleat RBC Rel Count (0.00-0.1) % Eos # (Auto) (0-0.5) x10^3/uL Immature Gran # (Auto) (0.00-0.03) x10^3u/L Absolute Lymphs (auto) (1.0-4.6) x10^3/uL Absolute Monos (auto) (0.0-1.3) x10^3/uL Absolute Nucleated RBC (0.00-0.01) x10^3u/L Lymphocytes % (24.0-44.0) % Monocytes % (0.0-12.0) % Eosinophils % (0.00-5.0) % Basophils % (0.0-0.4) % Absolute Granulocytes (1.4-6.9) x10^3/uL Basophils # (0-0.4) x10^3/uL D-Dimer (0.0-0.50) mg/L Sodium (135-145) mmol/L Potassium (3.5-5.1) mmol/L Chloride (98-107) mmol/L Carbon Dioxide (22-30) mmol/L Anion Gap (5-15) MEQ/L BUN (7-17) mg/dL Creatinine (0.52-1.04) mg/dL Estimated GFR ML/MIN Glucose (74-106) mg/dL Calcium (8.4-10.2) mg/dL Total Bilirubin (0.2-1.3) mg/dL AST (14-36) U/L ALT (0-35) U/L Alkaline Phosphatase (38-126) U/L Troponin I < 0.012 (0.000-0.033) ng/mL NT-Pro-B Natriuret Pep 341 (<300) pg/mL Serum Total Protein (6.3-8.2) g/dL Albumin (3.5-5.0) g/dL - Radiology Impressions Radiology Exams & Impressions: Radiology Procedures Category Date Time Status CHEST 2 VIEWS (PA AND LAT) Stat Exams 01/11/24 11:50 Taken CHEST WITH CONTRAST [CT] Stat Exams 01/11/24 12:23 Ordered Assessment/Plan (1) Elevated d-dimer Current Visit: Yes Status: Acute Code(s): R79.89 - OTHER SPECIFIED ABNORMAL FINDINGS OF BLOOD CHEMISTRY (2) ELSY (acute kidney injury) Current Visit: Yes Status: Acute Code(s): N17.9 - ACUTE KIDNEY FAILURE, UNSPECIFIED (3) Type 2 diabetes mellitus Current Visit: Yes Status: Acute (4) Chest pain, rule out acute myocardial infarction Current Visit: Yes Status: Acute Code(s): R07.9 - CHEST PAIN, UNSPECIFIED (5) Essential hypertension Current Visit: No Status: Acute Code(s): I10 - ESSENTIAL (PRIMARY) HYPERTENSION
[2024-01-11] MEDS ORDERED: Zofran 4 MG/2 ML VIAL IV PRN (15:25)
[2024-01-11] MEDS ORDERED: TYLENOL 325 MG PO PRN (15:25)
[2024-01-11] MEDS ORDERED: HUMALOG SQ PRN (15:25)
--- NOTE | 2024-01-11 15:25 | PCM.HP ---
<TANYA MERIDA - Last Filed: 01/11/24 16:04> History of Present Illness - Chief Complaint Chief Complaint: elevated d-dimer, chest pain rule out Date: 01/11/24 History of Present Illness: Ms. Aguilar is a 78 year old female with a pmhx of HLD, CKD, menieres disease, Ulcerative colitis, asthma/COPD (RA at baseline), HTN, [place] (2017), and DM2 who presented to ED 01/11/24 with complaints of substernal chest pain with radiation the left arm and elbow. Patient reports onset at approximately 4 a.m. She describes that the pain initially as what felt like a thump or "popping sensation" "like if someone would hit you in the chest" and later as pressure- like tightness. She states the adolfo only lasted a few seconds. Pain was mild in severity with no alleviating/aggravating/or associated symptoms. No chest pain during interview or since arrival to the hospital. She also endorses a two week history of right calf pain, no redness, warmth noted. She does follow with Dr. Blankenship for cardiology. In ED, vitals showing bradycardia and hypertension. EKG NS with no ST elevation/deviation. Lab findings showing ELSY with creat at 1.37 (baseline around 1.2), and elevated Ddimer at 2.98. Initital trop and BNP unremarkable. Plan for overnight observation, therapeutic lovenox, VQ scan/CT chest pending improvement of creat for evaluation of PE. - Review of Systems Constitutional: No Symptoms Eyes: No Symptoms Ears, Nose, & Throat: No Symptoms Respiratory: Short Of Breath Cardiac: Chest Pain, Edema (BLE) Abdominal/Gastrointestinal: No Symptoms Genitourinary Symptoms: No Symptoms Musculoskeletal: No Symptoms Skin: No Symptoms Neurological: Dizziness (when bending over) Psychological: No Symptoms Endocrine: No Symptoms Hematologic/Lymphatic: No Symptoms Immunological/Allergic: No Symptoms Medications & Allergies Home Medications: Home Medication List Aspirin 81 mg PO DAILY 09/17/14 [History Confirmed 01/11/24] Nebivolol HCl [Bystolic] 10 mg PO DAILY 09/17/14 [History Confirmed 01/11/24] Lisinopril 20 mg [Zestril 20 MG] 20 mg PO DAILY 10/25/15 [History Confirmed 01/11/24] Semaglutide [Ozempic] 1 mg SQ WEEKLY 01/11/24 [History Confirmed 01/11/24] Allergies/Adverse Reactions: Allergies Allergy/AdvReac Type Severity Reaction Status Date / Time cephalexin monohydrate Allergy Unknown Verified 01/11/24 11:23 [From Keflex] erythromycin base Allergy Unknown Verified 01/11/24 11:23 [Erythromycin Base] Sulfa (Sulfonamide Allergy Unknown Verified 01/11/24 11:23 Antibiotics) [Sulfa(Sulfonamide Antibiotics)] doxycycline Allergy Verified 01/11/24 11:23 betamethasone AdvReac Unknown tired/"doenst Verified 01/11/24 11:23 [From Celestone] feel well" betamethasone sodium AdvReac Unknown tired/"doenst Verified 01/11/24 11:23 phosphate feel well" [From Celestone] brompheniramine maleate AdvReac Unknown Verified 01/11/24 11:23 [From Dimetapp Allergy] codeine [Codeine] AdvReac Unknown Verified 01/11/24 11:23 phenylpropanolamine HCl AdvReac Unknown Verified 01/11/24 11:23 [From Dimetapp Allergy] - Past Medical History Past Medical History: Yes Neurological History: No Pertinent History ENT History: Cataracts Cardiac History: High Cholesterol, Hypertension, Myocardial Infarction ([place]) Respiratory History: Asthma Endocrine Medical History: Diabetes Type II Musculoskelatal History: Arthritis, Fractures GI Medical History: Colitis, Hemorrhoids, Polyps, Other (Ulcerative colitis) History: No Pertinent History Pyscho-Social History: Depression Reproductive Disorders: No Pertinent History Comment: Previous fx in foot - Past Surgical History Past Surgical History: Yes Neuro Surgical History: No Pertinent History Cardiac History: Cardiac Catheterization Respiratory Surgery: No Pertinent History GI Surgical History: Appendectomy Genitourinary Surgical Hx: No Pertinent History Musculskeletal Surgical Hx: Joint Replacement, Orthopedic Surgery Female Surgical History: Hysterectomy Other Surgical History: bilateral knee replacements, knee surgeries and arthroscopies.,. artifical lens to lilli eyes - Social History Smoking Status: Never smoker Exposure to second hand smoke: No Alcohol: None Drug Use: none - Social Determinants of Health Will the patient participate in the screening: Yes Do you worry about a steady place to live?: No Do you have any problems with any of the following?: No known problems In the past 12 months,have you had to go without utilities?: No Have you or anyone in your house had to go without enough: No Transportation Issues: No Has anyone in your support network made you feel unsafe?: No - Physical Exam Vital Signs: Vital Signs - 24 hr Temp Pulse Resp BP BP Pulse Ox 01/11/24 14:00 64 22 150/76 98 01/11/24 13:30 58 L 22 140/63 98 01/11/24 13:00 54 L 11 L 143/76 98 01/11/24 12:41 98 01/11/24 12:30 60 12 168/85 91 L 01/11/24 12:01 55 L 19 157/93 98 01/11/24 11:30 57 L 15 162/94 98 01/11/24 11:25 97.5 F 70 19 175/90 98 General Appearance: no apparent distress Neurologic Exam: alert, oriented x 3, cooperative Eye Exam: PERRL/EOMI Ears, Nose, Throat Exam: normal ENT inspection Neck Exam: normal inspection Respiratory Exam: normal breath sounds, lungs clear Cardiovascular Exam: regular rate/rhythm, normal heart sounds Gastrointestinal/Abdomen Exam: soft, normal bowel sounds Pelvic Exam: not done Rectal Exam: deferred Back Exam: normal inspection Extremity Exam: swelling (BLE trace) Skin Exam: pale Results - Labs Lab/Micro Results: Lab Results-Last 24 Hours 01/11/24 01/11/24 01/11/24 Range/Units 11:57 11:57 11:57 WBC 8.8 (4.0-10.5) x10^3/uL RBC 4.64 (4.1-5.4) x10^6/uL Hgb 14.6 (12.0-16.0) g/dL Hct 44.4 (35-47) % MCV 95.7 (78-100) fL MCH 31.5 (26-32) pg MCHC 32.9 (32-36) g/dL RDW 13.2 (11.5-14.0) % Plt Count 198 (150-450) x10^3/uL MPV 11.7 H (7.5-11.0) fL Gran % 47.4 (36.0-66.0) % Immature Gran % (Auto) 0.6 H (0.00-0.4) % Nucleat RBC Rel Count 0.0 (0.00-0.1) % Eos # (Auto) 0.25 (0-0.5) x10^3/uL Immature Gran # (Auto) 0.05 H (0.00-0.03) x10^3u/L Absolute Lymphs (auto) 3.69 (1.0-4.6) x10^3/uL Absolute Monos (auto) 0.58 (0.0-1.3) x10^3/uL Absolute Nucleated RBC 0.00 (0.00-0.01) x10^3u/L Lymphocytes % 42.0 (24.0-44.0) % Monocytes % 6.6 (0.0-12.0) % Eosinophils % 2.8 (0.00-5.0) % Basophils % 0.6 (0.0-0.4) % Absolute Granulocytes 4.17 (1.4-6.9) x10^3/uL Basophils # 0.05 (0-0.4) x10^3/uL D-Dimer 2.98 H* (0.0-0.50) mg/L Sodium 140 (135-145) mmol/L Potassium 4.4 (3.5-5.1) mmol/L Chloride 108 H (98-107) mmol/L Carbon Dioxide 23 (22-30) mmol/L Anion Gap 13.0 (5-15) MEQ/L BUN 28 H (7-17) mg/dL Creatinine 1.37 H (0.52-1.04) mg/dL Estimated GFR 39.3 ML/MIN Glucose 159 H (74-106) mg/dL Calcium 9.6 (8.4-10.2) mg/dL Total Bilirubin 0.60 (0.2-1.3) mg/dL AST 46 H (14-36) U/L ALT 34 (0-35) U/L Alkaline Phosphatase 62 (38-126) U/L Troponin I (0.000-0.033) ng/mL NT-Pro-B Natriuret Pep (<300) pg/mL Serum Total Protein 7.6 (6.3-8.2) g/dL Albumin 4.0 (3.5-5.0) g/dL 04/07/24 04/07/24 Range/Units 11:57 14:15 WBC (4.0-10.5) x10^3/uL RBC (4.1-5.4) x10^6/uL Hgb (12.0-16.0) g/dL Hct (35-47) % MCV (78-100) fL MCH (26-32) pg MCHC (32-36) g/dL RDW (11.5-14.0) % Plt Count (150-450) x10^3/uL MPV (7.5-11.0) fL Gran % (36.0-66.0) % Immature Gran % (Auto) (0.00-0.4) % Nucleat RBC Rel Count (0.00-0.1) % Eos # (Auto) (0-0.5) x10^3/uL Immature Gran # (Auto) (0.00-0.03) x10^3u/L Absolute Lymphs (auto) (1.0-4.6) x10^3/uL Absolute Monos (auto) (0.0-1.3) x10^3/uL Absolute Nucleated RBC (0.00-0.01) x10^3u/L Lymphocytes % (24.0-44.0) % Monocytes % (0.0-12.0) % Eosinophils % (0.00-5.0) % Basophils % (0.0-0.4) % Absolute Granulocytes (1.4-6.9) x10^3/uL Basophils # (0-0.4) x10^3/uL D-Dimer (0.0-0.50) mg/L Sodium (135-145) mmol/L Potassium (3.5-5.1) mmol/L Chloride (98-107) mmol/L Carbon Dioxide (22-30) mmol/L Anion Gap (5-15) MEQ/L BUN (7-17) mg/dL Creatinine (0.52-1.04) mg/dL Estimated GFR ML/MIN Glucose (74-106) mg/dL Calcium (8.4-10.2) mg/dL Total Bilirubin (0.2-1.3) mg/dL AST (14-36) U/L ALT (0-35) U/L Alkaline Phosphatase (38-126) U/L Troponin I < 0.012 < 0.012 (0.000-0.033) ng/mL NT-Pro-B Natriuret Pep 341 (<300) pg/mL Serum Total Protein (6.3-8.2) g/dL Albumin (3.5-5.0) g/dL - Radiology Impressions Radiology Exams & Impressions: Radiology Procedures Category Date Time Status CHEST 2 VIEWS (PA AND LAT) Stat Exams 01/11/24 11:50 Taken Assessment/Plan (1) Chest pain, rule out acute myocardial infarction Current Visit: Yes Status: Acute Assessment & Plan: -EKG/trop/BNP unremarkable, will repeat in the a.m. -Tele -Lipid in a.m/TSH -Most recent echo/cardiac stress test on file is 02/01/13 Impression: Suspicious area of reversible ischemia in the anterior wall of the left ventricle myocardium. No wall abnormalities seen. EF 62%. -Echo in the a.m. -CXR pending Code(s): R07.9 - CHEST PAIN, UNSPECIFIED (2) Elevated d-dimer Current Visit: Yes Status: Acute Assessment & Plan: -Therapeutic lovenox, plan for VQ scan in the morning, unable to obtain CT chest due to elevated creat -venous doppler Code(s): R79.89 - OTHER SPECIFIED ABNORMAL FINDINGS OF BLOOD CHEMISTRY (3) ELSY (acute kidney injury) Current Visit: Yes Status: Acute Assessment & Plan: -Baseline creat around 1.2 -Gentle hydration -Avoid ERVIN/ARB/NSAIDS -Monitor renal/lytes -Monitor for fluid overload Code(s): N17.9 - ACUTE KIDNEY FAILURE, UNSPECIFIED (4) Type 2 diabetes mellitus Current Visit: Yes Status: Acute Assessment & Plan: -SSI -A1c 12/25/23 at 7.64 -ADA diet (5) Essential hypertension Current Visit: No Status: Acute Assessment & Plan: -continue home medications Code(s): I10 - ESSENTIAL (PRIMARY) HYPERTENSION Telemedicine Encounter - Telemedicine Encounter Telemedicine Encounter: The entirety of this encounter was performed via Telemedicine" <LUCRETIA DOMINGO - Last Filed: 01/11/24 20:52> History of Present Illness - Chief Complaint History of Present Illness: is a 78 year old female. - Physical Exam Vital Signs: Vital Signs - 24 hr Temp Pulse Resp BP BP Pulse Ox 01/11/24 19:35 97.5 F 64 20 151/63 95 01/11/24 19:00 61 16 98 01/11/24 16:10 93 H 18 99 01/11/24 16:00 97.4 F 62 18 140/64 96 01/11/24 15:34 97.5 F 64 22 175/90 98 01/11/24 14:00 64 22 150/76 98 01/11/24 13:30 58 L 22 140/63 98 01/11/24 13:00 54 L 11 L 143/76 98 01/11/24 12:41 98 01/11/24 12:30 60 12 168/85 91 L 01/11/24 12:01 55 L 19 157/93 98 01/11/24 11:30 57 L 15 162/94 98 01/11/24 11:25 97.5 F 70 19 175/90 98 Results - Labs Lab/Micro Results: Lab Results-Last 24 Hours 01/11/24 01/11/24 01/11/24 Range/Units 11:57 11:57 11:57 WBC 8.8 (4.0-10.5) x10^3/uL RBC 4.64 (4.1-5.4) x10^6/uL Hgb 14.6 (12.0-16.0) g/dL Hct 44.4 (35-47) % MCV 95.7 (78-100) fL MCH 31.5 (26-32) pg MCHC 32.9 (32-36) g/dL RDW 13.2 (11.5-14.0) % Plt Count 198 (150-450) x10^3/uL MPV 11.7 H (7.5-11.0) fL Gran % 47.4 (36.0-66.0) % Immature Gran % (Auto) 0.6 H (0.00-0.4) % Nucleat RBC Rel Count 0.0 (0.00-0.1) % Eos # (Auto) 0.25 (0-0.5) x10^3/uL Immature Gran # (Auto) 0.05 H (0.00-0.03) x10^3u/L Absolute Lymphs (auto) 3.69 (1.0-4.6) x10^3/uL Absolute Monos (auto) 0.58 (0.0-1.3) x10^3/uL Absolute Nucleated RBC 0.00 (0.00-0.01) x10^3u/L Lymphocytes % 42.0 (24.0-44.0) % Monocytes % 6.6 (0.0-12.0) % Eosinophils % 2.8 (0.00-5.0) % Basophils % 0.6 (0.0-0.4) % Absolute Granulocytes 4.17 (1.4-6.9) x10^3/uL Basophils # 0.05 (0-0.4) x10^3/uL D-Dimer 2.98 H* (0.0-0.50) mg/L Sodium 140 (135-145) mmol/L Potassium 4.4 (3.5-5.1) mmol/L Chloride 108 H (98-107) mmol/L Carbon Dioxide 23 (22-30) mmol/L Anion Gap 13.0 (5-15) MEQ/L BUN 28 H (7-17) mg/dL Creatinine 1.37 H (0.52-1.04) mg/dL Estimated GFR 39.3 ML/MIN Glucose 159 H (74-106) mg/dL POC Glucometer (74 to 106) mg/dL Calcium 9.6 (8.4-10.2) mg/dL Total Bilirubin 0.60 (0.2-1.3) mg/dL AST 46 H (14-36) U/L ALT 34 (0-35) U/L Alkaline Phosphatase 62 (38-126) U/L Troponin I (0.000-0.033) ng/mL NT-Pro-B Natriuret Pep (<300) pg/mL Serum Total Protein 7.6 (6.3-8.2) g/dL Albumin 4.0 (3.5-5.0) g/dL TSH 3rd Generation (0.47-4.68) mIU/L 01/11/24 01/11/24 01/11/24 Range/Units 11:57 14:15 16:00 WBC (4.0-10.5) x10^3/uL RBC (4.1-5.4) x10^6/uL Hgb (12.0-16.0) g/dL Hct (35-47) % MCV (78-100) fL MCH (26-32) pg MCHC (32-36) g/dL RDW (11.5-14.0) % Plt Count (150-450) x10^3/uL MPV (7.5-11.0) fL Gran % (36.0-66.0) % Immature Gran % (Auto) (0.00-0.4) % Nucleat RBC Rel Count (0.00-0.1) % Eos # (Auto) (0-0.5) x10^3/uL Immature Gran # (Auto) (0.00-0.03) x10^3u/L Absolute Lymphs (auto) (1.0-4.6) x10^3/uL Absolute Monos (auto) (0.0-1.3) x10^3/uL Absolute Nucleated RBC (0.00-0.01) x10^3u/L Lymphocytes % (24.0-44.0) % Monocytes % (0.0-12.0) % Eosinophils % (0.00-5.0) % Basophils % (0.0-0.4) % Absolute Granulocytes (1.4-6.9) x10^3/uL Basophils # (0-0.4) x10^3/uL D-Dimer (0.0-0.50) mg/L Sodium (135-145) mmol/L Potassium (3.5-5.1) mmol/L Chloride (98-107) mmol/L Carbon Dioxide (22-30) mmol/L Anion Gap (5-15) MEQ/L BUN (7-17) mg/dL Creatinine (0.52-1.04) mg/dL Estimated GFR ML/MIN Glucose (74-106) mg/dL POC Glucometer (74 to 106) mg/dL Calcium (8.4-10.2) mg/dL Total Bilirubin (0.2-1.3) mg/dL AST (14-36) U/L ALT (0-35) U/L Alkaline Phosphatase (38-126) U/L Troponin I < 0.012 < 0.012 (0.000-0.033) ng/mL NT-Pro-B Natriuret Pep 341 (<300) pg/mL Serum Total Protein (6.3-8.2) g/dL Albumin (3.5-5.0) g/dL TSH 3rd Generation 1.220 (0.47-4.68) mIU/L 01/11/24 01/11/24 Range/Units 17:01 19:05 WBC (4.0-10.5) x10^3/uL RBC (4.1-5.4) x10^6/uL Hgb (12.0-16.0) g/dL Hct (35-47) % MCV (78-100) fL MCH (26-32) pg MCHC (32-36) g/dL RDW (11.5-14.0) % Plt Count (150-450) x10^3/uL MPV (7.5-11.0) fL Gran % (36.0-66.0) % Immature Gran % (Auto) (0.00-0.4) % Nucleat RBC Rel Count (0.00-0.1) % Eos # (Auto) (0-0.5) x10^3/uL Immature Gran # (Auto) (0.00-0.03) x10^3u/L Absolute Lymphs (auto) (1.0-4.6) x10^3/uL Absolute Monos (auto) (0.0-1.3) x10^3/uL Absolute Nucleated RBC (0.00-0.01) x10^3u/L Lymphocytes % (24.0-44.0) % Monocytes % (0.0-12.0) % Eosinophils % (0.00-5.0) % Basophils % (0.0-0.4) % Absolute Granulocytes (1.4-6.9) x10^3/uL Basophils # (0-0.4) x10^3/uL D-Dimer (0.0-0.50) mg/L Sodium (135-145) mmol/L Potassium (3.5-5.1) mmol/L Chloride (98-107) mmol/L Carbon Dioxide (22-30) mmol/L Anion Gap (5-15) MEQ/L BUN (7-17) mg/dL Creatinine (0.52-1.04) mg/dL Estimated GFR ML/MIN Glucose (74-106) mg/dL POC Glucometer 149 H (74 to 106) mg/dL Calcium (8.4-10.2) mg/dL Total Bilirubin (0.2-1.3) mg/dL AST (14-36) U/L ALT (0-35) U/L Alkaline Phosphatase (38-126) U/L Troponin I < 0.012 (0.000-0.033) ng/mL NT-Pro-B Natriuret Pep (<300) pg/mL Serum Total Protein (6.3-8.2) g/dL Albumin (3.5-5.0) g/dL TSH 3rd Generation (0.47-4.68) mIU/L Accuchecks Date 01/11/24 Time 17:14 - Radiology Impressions Radiology Exams & Impressions: Radiology Procedures Category Date Time Status CHEST 2 VIEWS (PA AND LAT) Stat Exams 01/11/24 11:50 Completed ECHO W/2D AND DOPPLER [US] Routine Exams 01/12/24 08:00 Ordered PULMONARY PERF VENTILATION [NUCMED] Urgent Exams 01/12/24 11:00 Ordered VENOUS UNILAT/LIMITED EXTREMIT [US] Urgent Exams 01/12/24 08:00 Ordered - Other Procedures and Tests Respiratory Therapy 01/11/24 15:25 EKG REPEAT IN AM 01/12/24 07:00 Respiratory Therapy Assessment DAILY Telemedicine Encounter - Telemedicine Encounter Telemedicine Encounter: The entirety of this encounter was performed via Telemedicine" ISATU Encounter - ISATU Encounter Attestation ISATU Encounter Attestation: "IhavepersonallyseenandexamineTOM Eugene andhavediscussed pertinent aspects of their care with Tanya Tsang agree with the history, physical exam (any modifications based on my personal exam will be noted below), assessment, and plan as outlined in original note. Please see immediately below for my summary of findings and additional assessment and plan along with any meaningful corrections/explanations to the Subjective/Objective portions of the ISATU note will be noted." My portion of the encounter took place via telemedicine. -Patient with risk factors of DM and HTN presenting with chest pressure that woke her up from sleep. EKG and trop negative however d dimer elevated. V/Q scan planned for tomorrow due to elevated creatinine and inability to do CT angio.
[2024-01-11] MEDS ORDERED: ENOXAPARIN SODIUM SQ ONE (17:33)
[2024-01-11] MEDS: ENOXAPARIN SODIUM SQ ONE ×2 (17:34→17:38)
[2024-01-11] MEDS ORDERED: VENTOLIN COMMON CANISTER IH PRN (17:40)
--- NOTE | 2024-01-11 19:28 | XRAY ---
Indication: Chest pain. Comparison: March 29, 2023 PA/lateral chest unchanged again hyperinflated with left infrahilar subsegmental atelectasis/scarring. Heart not enlarged. Bony thorax intact again with osteopenia, degenerative changes, and scoliosis. No new/acute findings.
[2024-01-12 04:32] LABS: Absolute Neutrophil Ct (ANC) 2.97 x10^3/uL (1.4-6.9); BASOPHIL % 0.4 % (0.0-0.4); Basophil (Absolute #) 0.03 x10^3/uL (0-0.4); Eosinophil % 3.1 % (0.00-5.0); Eosinophil (Absolute #) 0.22 x10^3/uL (0-0.5); Hematocrit 37.6 % (35-47); Hemoglobin 12.5 g/dL (12.0-16.0); IMMATURE GRAN # 0.03 x10^3u/L (0.00-0.03); IMMATURE GRAN % 0.4 % (0.00-0.4); Lymphocyte (Absolute #) 3.45 x10^3/uL (1.0-4.6); Lymphocytes % 47.9 % (24.0-44.0); Mean Cell Volume 95.2 fL (78-100); Mean Corpuscular Hemoglobin 31.6 pg (26-32); Mean Corpuscular Hgb Concent. 33.2 g/dL (32-36); Mean Platelet Volume 11.6 fL (7.5-11.0); Monocyte (Absolute #) 0.51 x10^3/uL (0.0-1.3); Monocytes % 7.1 % (0.0-12.0); Neutrophil % 41.1 % (36.0-66.0); Platelet Count 167 x10^3/uL (150-450); Red Blood Count 3.95 x10^6/uL (4.1-5.4); Red Cell Distribution Width 13.4 % (11.5-14.0); White Blood Count 7.2 x10^3/uL (4.0-10.5)
[2024-01-12 04:54] LABS: ALBUMIN 3.2 g/dL (3.5-5.0); ANION GAP 9.3 MEQ/L (5-15); BILIRUBIN,TOTAL 0.5 mg/dL (0.2-1.3); Calcium 8.8 mg/dL (8.4-10.2); Creatinine 1 1.1 mg/dL (0.52-1.04); EST GLOMERULAR FILTRATION RATE 51.1 ML/MIN; Potassium 3.6 mmol/L (3.5-5.1)
--- NOTE | 2024-01-12 08:32 | PCM.DS ---
Discharge Summary Date of Admission: 01/11/24 15:15 Date of Discharge: 01/12/24 Admitting Physician: LUCRETIA DOMINGO MD Primary Care Provider: SARAH SMITH Allergies Allergies cephalexin monohydrate [From Keflex] Allergy (Unknown, Verified 01/11/24 11:23) erythromycin base [Erythromycin Base] Allergy (Unknown, Verified 01/11/24 11:23) Sulfa (Sulfonamide Antibiotics) [Sulfa(Sulfonamide Antibiotics)] Allergy (Unkn own, Verified 01/11/24 11:23) doxycycline Allergy (Verified 01/11/24 11:23) betamethasone [From Celestone] Adverse Reaction (Unknown, Verified 01/11/24 11:23) tired/"doenst feel well" betamethasone sodium phosphate [From Celestone] Adverse Reaction (Unknown, Verified 01/11/24 11:23) tired/"doenst feel well" brompheniramine maleate [From Dimetapp Allergy] Adverse Reaction (Unknown, Verified 01/11/24 11:23) codeine [Codeine] Adverse Reaction (Unknown, Verified 01/11/24 11:23) phenylpropanolamine HCl [From Dimetapp Allergy] Adverse Reaction (Unknown, Verified 01/11/24 11:23) Hospital Summary - Hospital Course Hospital Course: Ms. Aguilar is a 78 year old female with a pmhx of HLD, CKD, menieres disease, Ulcerative colitis, asthma/COPD (RA at baseline), HTN, [place] (2017), and DM2 who presented to ED 01/11/24 with complaints of substernal chest pain with radiation the left arm and elbow. Patient reports onset at approximately 4 a.m. She describes that the pain initially as what felt like a thump or "popping s ensation" "like if someone would hit you in the chest" and later as pressure- like tightness. The pain woke her up from sleep. She states the pain only lasted a few seconds. Pain was mild in severity with no alleviating/aggravating/or associated symptoms. No chest pain since arrival to the hospital. She also endorses a two week history of right calf pain, no redness, warmth noted. She does follow with Dr. Blankenship for cardiology. On admission 01/10 + bradycardia and hypertension. EKG NS with no ST e levation/deviation. Lab findings showing ELSY with creat at 1.37 (baseline around 1.2), and elevated Ddimer at 2.98. Initital trop and BNP unremarkable. Started on therapeutic lovenox, VQ scan/CT chest for evaluation of PE, improvement of creat. Today creat is at baseline. She reports she has never seen a pond tender before. She appears to have CKD per old labs reviewed. She continues to have no CP or SOB today. She has an appointment with Dr. Blankenship on 01/27. IV fluids stopped d/t hyperchloremia. VQ scan, VD of RLE and echo pending. If all ok can d/c today and f/u with PCP and cardiology OP. - Vitals & Intake/Output Vital Signs: Vital Signs Temperature 97.5 F 01/12/24 06:53 Pulse Rate 64 01/12/24 07:00 Respiratory Rate 18 01/12/24 07:00 Blood Pressure 140/67 01/12/24 06:53 O2 Sat by Pulse Oximetry 96 01/12/24 07:00 Intake & Output: Intake & Output 01/09/24 01/10/24 01/11/24 01/12/24 11:59 11:59 11:59 11:59 Intake Total 1671 Balance 1671 Weight 81.7 kg 88.1 kg - Lab Result Diagrams: 01/12/24 04:10 01/12/24 04:10 Lab Results-Last 24 Hrs: Lab Results-Last 24 Hours 01/11/24 01/11/24 01/11/24 Range/Units 11:57 11:57 11:57 WBC 8.8 (4.0-10.5) x10^3/uL RBC 4.64 (4.1-5.4) x10^6/uL Hgb 14.6 (12.0-16.0) g/dL Hct 44.4 (35-47) % MCV 95.7 (78-100) fL MCH 31.5 (26-32) pg MCHC 32.9 (32-36) g/dL RDW 13.2 (11.5-14.0) % Plt Count 198 (150-450) x10^3/uL MPV 11.7 H (7.5-11.0) fL Gran % 47.4 (36.0-66.0) % Immature Gran % (Auto) 0.6 H (0.00-0.4) % Nucleat RBC Rel Count 0.0 (0.00-0.1) % Eos # (Auto) 0.25 (0-0.5) x10^3/uL Immature Gran # (Auto) 0.05 H (0.00-0.03) x10^3u/L Absolute Lymphs (auto) 3.69 (1.0-4.6) x10^3/uL Absolute Monos (auto) 0.58 (0.0-1.3) x10^3/uL Absolute Nucleated RBC 0.00 (0.00-0.01) x10^3u/L Lymphocytes % 42.0 (24.0-44.0) % Monocytes % 6.6 (0.0-12.0) % Eosinophils % 2.8 (0.00-5.0) % Basophils % 0.6 (0.0-0.4) % Absolute Granulocytes 4.17 (1.4-6.9) x10^3/uL Basophils # 0.05 (0-0.4) x10^3/uL D-Dimer 2.98 H* (0.0-0.50) mg/L Sodium 140 (135-145) mmol/L Potassium 4.4 (3.5-5.1) mmol/L Chloride 108 H (98-107) mmol/L Carbon Dioxide 23 (22-30) mmol/L Anion Gap 13.0 (5-15) MEQ/L BUN 28 H (7-17) mg/dL Creatinine 1.37 H (0.52-1.04) mg/dL Estimated GFR 39.3 ML/MIN Glucose 159 H (74-106) mg/dL POC Glucometer (74 to 106) mg/dL Calcium 9.6 (8.4-10.2) mg/dL Total Bilirubin 0.60 (0.2-1.3) mg/dL AST 46 H (14-36) U/L ALT 34 (0-35) U/L Alkaline Phosphatase 62 (38-126) U/L Troponin I (0.000-0.033) ng/mL NT-Pro-B Natriuret Pep (<300) pg/mL Serum Total Protein 7.6 (6.3-8.2) g/dL Albumin 4.0 (3.5-5.0) g/dL Triglycerides (30-150) mg/dL Cholesterol (50-200) mg/dL LDL Cholesterol (30-100) mg/dL HDL Cholesterol (40-60) mg/dL Heart Disease Risk Ratio TSH 3rd Generation (0.47-4.68) mIU/L 01/11/24 01/11/24 01/11/24 Range/Units 11:57 14:15 16:00 WBC (4.0-10.5) x10^3/uL RBC (4.1-5.4) x10^6/uL Hgb (12.0-16.0) g/dL Hct (35-47) % MCV (78-100) fL MCH (26-32) pg MCHC (32-36) g/dL RDW (11.5-14.0) % Plt Count (150-450) x10^3/uL MPV (7.5-11.0) fL Gran % (36.0-66.0) % Immature Gran % (Auto) (0.00-0.4) % Nucleat RBC Rel Count (0.00-0.1) % Eos # (Auto) (0-0.5) x10^3/uL Immature Gran # (Auto) (0.00-0.03) x10^3u/L Absolute Lymphs (auto) (1.0-4.6) x10^3/uL Absolute Monos (auto) (0.0-1.3) x10^3/uL Absolute Nucleated RBC (0.00-0.01) x10^3u/L Lymphocytes % (24.0-44.0) % Monocytes % (0.0-12.0) % Eosinophils % (0.00-5.0) % Basophils % (0.0-0.4) % Absolute Granulocytes (1.4-6.9) x10^3/uL Basophils # (0-0.4) x10^3/uL D-Dimer (0.0-0.50) mg/L Sodium (135-145) mmol/L Potassium (3.5-5.1) mmol/L Chloride (98-107) mmol/L Carbon Dioxide (22-30) mmol/L Anion Gap (5-15) MEQ/L BUN (7-17) mg/dL Creatinine (0.52-1.04) mg/dL Estimated GFR ML/MIN Glucose (74-106) mg/dL POC Glucometer (74 to 106) mg/dL Calcium (8.4-10.2) mg/dL Total Bilirubin (0.2-1.3) mg/dL AST (14-36) U/L ALT (0-35) U/L Alkaline Phosphatase (38-126) U/L Troponin I < 0.012 < 0.012 (0.000-0.033) ng/mL NT-Pro-B Natriuret Pep 341 (<300) pg/mL Serum Total Protein (6.3-8.2) g/dL Albumin (3.5-5.0) g/dL Triglycerides (30-150) mg/dL Cholesterol (50-200) mg/dL LDL Cholesterol (30-100) mg/dL HDL Cholesterol (40-60) mg/dL Heart Disease Risk Ratio TSH 3rd Generation 1.220 (0.47-4.68) mIU/L 01/11/24 01/11/24 01/11/24 Range/Units 17:01 19:05 21:36 WBC (4.0-10.5) x10^3/uL RBC (4.1-5.4) x10^6/uL Hgb (12.0-16.0) g/dL Hct (35-47) % MCV (78-100) fL MCH (26-32) pg MCHC (32-36) g/dL RDW (11.5-14.0) % Plt Count (150-450) x10^3/uL MPV (7.5-11.0) fL Gran % (36.0-66.0) % Immature Gran % (Auto) (0.00-0.4) % Nucleat RBC Rel Count (0.00-0.1) % Eos # (Auto) (0-0.5) x10^3/uL Immature Gran # (Auto) (0.00-0.03) x10^3u/L Absolute Lymphs (auto) (1.0-4.6) x10^3/uL Absolute Monos (auto) (0.0-1.3) x10^3/uL Absolute Nucleated RBC (0.00-0.01) x10^3u/L Lymphocytes % (24.0-44.0) % Monocytes % (0.0-12.0) % Eosinophils % (0.00-5.0) % Basophils % (0.0-0.4) % Absolute Granulocytes (1.4-6.9) x10^3/uL Basophils # (0-0.4) x10^3/uL D-Dimer (0.0-0.50) mg/L Sodium (135-145) mmol/L Potassium (3.5-5.1) mmol/L Chloride (98-107) mmol/L Carbon Dioxide (22-30) mmol/L Anion Gap (5-15) MEQ/L BUN (7-17) mg/dL Creatinine (0.52-1.04) mg/dL Estimated GFR ML/MIN Glucose (74-106) mg/dL POC Glucometer 149 H 118 H (74 to 106) mg/dL Calcium (8.4-10.2) mg/dL Total Bilirubin (0.2-1.3) mg/dL AST (14-36) U/L ALT (0-35) U/L Alkaline Phosphatase (38-126) U/L Troponin I < 0.012 (0.000-0.033) ng/mL NT-Pro-B Natriuret Pep (<300) pg/mL Serum Total Protein (6.3-8.2) g/dL Albumin (3.5-5.0) g/dL Triglycerides (30-150) mg/dL Cholesterol (50-200) mg/dL LDL Cholesterol (30-100) mg/dL HDL Cholesterol (40-60) mg/dL Heart Disease Risk Ratio TSH 3rd Generation (0.47-4.68) mIU/L 01/12/24 01/12/24 01/12/24 Range/Units 04:10 04:10 04:10 WBC 7.2 (4.0-10.5) x10^3/uL RBC 3.95 L (4.1-5.4) x10^6/uL Hgb 12.5 (12.0-16.0) g/dL Hct 37.6 (35-47) % MCV 95.2 (78-100) fL MCH 31.6 (26-32) pg MCHC 33.2 (32-36) g/dL RDW 13.4 (11.5-14.0) % Plt Count 167 (150-450) x10^3/uL MPV 11.6 H (7.5-11.0) fL Gran % 41.1 (36.0-66.0) % Immature Gran % (Auto) 0.4 (0.00-0.4) % Nucleat RBC Rel Count 0.0 (0.00-0.1) % Eos # (Auto) 0.22 (0-0.5) x10^3/uL Immature Gran # (Auto) 0.03 (0.00-0.03) x10^3u/L Absolute Lymphs (auto) 3.45 (1.0-4.6) x10^3/uL Absolute Monos (auto) 0.51 (0.0-1.3) x10^3/uL Absolute Nucleated RBC 0.00 (0.00-0.01) x10^3u/L Lymphocytes % 47.9 H (24.0-44.0) % Monocytes % 7.1 (0.0-12.0) % Eosinophils % 3.1 (0.00-5.0) % Basophils % 0.4 (0.0-0.4) % Absolute Granulocytes 2.97 (1.4-6.9) x10^3/uL Basophils # 0.03 (0-0.4) x10^3/uL D-Dimer (0.0-0.50) mg/L Sodium 139 (135-145) mmol/L Potassium 3.6 (3.5-5.1) mmol/L Chloride 112 H (98-107) mmol/L Carbon Dioxide 22 (22-30) mmol/L Anion Gap 9.3 (5-15) MEQ/L BUN 22 H (7-17) mg/dL Creatinine 1.10 H (0.52-1.04) mg/dL Estimated GFR 51.1 ML/MIN Glucose 112 H (74-106) mg/dL POC Glucometer (74 to 106) mg/dL Calcium 8.8 (8.4-10.2) mg/dL Total Bilirubin 0.50 (0.2-1.3) mg/dL AST 37 H (14-36) U/L ALT 26 (0-35) U/L Alkaline Phosphatase 51 (38-126) U/L Troponin I (0.000-0.033) ng/mL NT-Pro-B Natriuret Pep (<300) pg/mL Serum Total Protein 6.0 L (6.3-8.2) g/dL Albumin 3.2 L (3.5-5.0) g/dL Triglycerides 132 (30-150) mg/dL Cholesterol 163 (50-200) mg/dL LDL Cholesterol 107 H (30-100) mg/dL HDL Cholesterol 42 (40-60) mg/dL Heart Disease Risk Ratio 4.0 TSH 3rd Generation (0.47-4.68) mIU/L 01/12/24 Range/Units 06:41 WBC (4.0-10.5) x10^3/uL RBC (4.1-5.4) x10^6/uL Hgb (12.0-16.0) g/dL Hct (35-47) % MCV (78-100) fL MCH (26-32) pg MCHC (32-36) g/dL RDW (11.5-14.0) % Plt Count (150-450) x10^3/uL MPV (7.5-11.0) fL Gran % (36.0-66.0) % Immature Gran % (Auto) (0.00-0.4) % Nucleat RBC Rel Count (0.00-0.1) % Eos # (Auto) (0-0.5) x10^3/uL Immature Gran # (Auto) (0.00-0.03) x10^3u/L Absolute Lymphs (auto) (1.0-4.6) x10^3/uL Absolute Monos (auto) (0.0-1.3) x10^3/uL Absolute Nucleated RBC (0.00-0.01) x10^3u/L Lymphocytes % (24.0-44.0) % Monocytes % (0.0-12.0) % Eosinophils % (0.00-5.0) % Basophils % (0.0-0.4) % Absolute Granulocytes (1.4-6.9) x10^3/uL Basophils # (0-0.4) x10^3/uL D-Dimer (0.0-0.50) mg/L Sodium (135-145) mmol/L Potassium (3.5-5.1) mmol/L Chloride (98-107) mmol/L Carbon Dioxide (22-30) mmol/L Anion Gap (5-15) MEQ/L BUN (7-17) mg/dL Creatinine (0.52-1.04) mg/dL Estimated GFR ML/MIN Glucose (74-106) mg/dL POC Glucometer 103 (74 to 106) mg/dL Calcium (8.4-10.2) mg/dL Total Bilirubin (0.2-1.3) mg/dL AST (14-36) U/L ALT (0-35) U/L Alkaline Phosphatase (38-126) U/L Troponin I (0.000-0.033) ng/mL NT-Pro-B Natriuret Pep (<300) pg/mL Serum Total Protein (6.3-8.2) g/dL Albumin (3.5-5.0) g/dL Triglycerides (30-150) mg/dL Cholesterol (50-200) mg/dL LDL Cholesterol (30-100) mg/dL HDL Cholesterol (40-60) mg/dL Heart Disease Risk Ratio TSH 3rd Generation (0.47-4.68) mIU/L Micro Results-Entire Visit: Accuchecks Date 01/12/24 Date 01/11/24 Time 06:53 Time 17:14 - Radiology Exams Ordered Rad Exams-Entire Visit: Radiology Procedures Category Date Time Status CHEST 2 VIEWS (PA AND LAT) Stat Exams 01/11/24 11:50 Completed ECHO W/2D AND DOPPLER [US] Routine Exams 01/12/24 08:00 Ordered PULMONARY PERF VENTILATION [NUCMED] Urgent Exams 01/12/24 11:00 Ordered VENOUS UNILAT/LIMITED EXTREMIT [US] Urgent Exams 01/12/24 08:00 Ordered - Procedures and Test Procedures and Tests throughout Hospitalization: Therapy Orders & Screens 01/11/24 15:25 EKG REPEAT IN AM Comment: Diagnosis: elevated d-dimer, chest pain rule out 01/11/24 16:10 RT Screen per Nursing Assess ONCE Comment: Protocol Order Physician Instructions: Greater than 3 points order RT Admission Screen Reason For Exam: Triggered on Admission Diagnosis: elevated d-dimer, chest pain rule out Diagnosis: elevated d-dimer, chest pain rule out Pneumonia: No Home O2: No Asthma: Yes CHF: No Home CPAP/BIPAP: No Home Nebs/MDI: Yes Total Points: 9 01/12/24 07:00 Respiratory Therapy Assessment DAILY Comment: Diagnosis: elevated d-dimer, chest pain rule out Discharge Exam General Appearance: no apparent distress, alert Neurologic Exam: alert, oriented x 3, cooperative, normal mood/affect, nml cerebellar function, sensation nml, No motor deficits Eye Exam: PERRL, EOMI, eyes nml inspection Ears, Nose, Throat Exam: normal ENT inspection, pharynx normal, moist mucous membranes Neck Exam: normal inspection, non-tender, supple, full range of motion Respiratory Exam: normal breath sounds, lungs clear, No respiratory distress Cardiovascular Exam: regular rate/rhythm, normal heart sounds Gastrointestinal/Abdomen Exam: soft, No tenderness, No mass Pelvic Exam: deferred Rectal Exam: deferred Back Exam: normal inspection, normal range of motion, No CVA tenderness, No vertebral tenderness Extremity Exam: normal inspection, normal range of motion Skin Exam: normal color, warm, dry Final Diagnosis/Problem List - Final Discharge Diagnosis/Problem (1) Chest pain Current Visit: Yes Status: Acute Assessment & Plan: - EKG/trop/BNP unremarkable -Tele - Lipid panel- LDL 107, advised ADA diet and exercise per cardiology recs - TSH 1.220 - Most recent echo/cardiac stress test on file is 02/01/13 Impression: Suspicious area of reversible ischemia in the anterior wall of the left ventricle myocardium. No wall abnormalities seen. EF 62%. -Echo- pending -CXR 01/11/24 PA/lateral chest unchanged again hyperinflated with left infrahilar subsegmental atelectasis/scarring. Heart not enlarged. Bony thorax intact again with osteopenia, degenerative changes, and scoliosis. No new/acute findings. - Pt has f/u appointment with Dr. Hurley-cardiology on 01/27 - Echo EF 51% Code(s): R07.9 - CHEST PAIN, UNSPECIFIED (2) Acute on chronic kidney failure Current Visit: Yes Status: Acute Code(s): N17.9 - ACUTE KIDNEY FAILURE, UNSPECIFIED; N18.9 - CHRONIC KIDNEY DISEASE, UNSPECIFIED (3) Elevated d-dimer Current Visit: Yes Status: Acute Assessment & Plan: -Therapeutic lovenox, - VQ scan, unable to obtain CT chest due to elevated creat -venous doppler RLE- negative for DVT - Echo- pending final read by cardiology can f/u OP. EF 51% per furniture repair technician - D-Dimer 2.98 - VQ scan negative for PE Code(s): R79.89 - OTHER SPECIFIED ABNORMAL FINDINGS OF BLOOD CHEMISTRY (4) Type 2 diabetes mellitus Current Visit: Yes Status: Acute Assessment & Plan: -SSI, accuchecks ac/hs -A1c 12/25/23 at 7.64- uncontrolled -ADA diet (5) Essential hypertension Current Visit: No Status: Acute Assessment & Plan: - BP stable -continue home medications Code(s): I10 - ESSENTIAL (PRIMARY) HYPERTENSION (6) Hyperchloremia Current Visit: Yes Status: Acute Assessment & Plan: - 2:2 IVF or renal tubular acidosis? - IV fluids stopped - Chloride 112 Code(s): E87.8 - OTH DISORDERS OF ELECTROLYTE AND FLUID BALANCE, NEC (7) Peripheral vascular disease Current Visit: Yes Status: Acute Assessment & Plan: - Chronic - obvious varicose veins with pain, no erythema or edema. - likely cause of right calf pain Code(s): I73.9 - PERIPHERAL VASCULAR DISEASE, UNSPECIFIED - Discharge Discharge Date: 01/12/24 Disposition: Home, Self-Care Condition: Fair Prescriptions: Continue Nebivolol HCl [Bystolic] 10 mg PO DAILY Aspirin 81 mg PO DAILY Lisinopril 20 mg [Zestril 20 MG] 20 mg PO DAILY Semaglutide [Ozempic] 1 mg SQ WEEKLY Follow up with: SARAH SMITH MD [Primary Care Provider] -
[2024-01-12] MEDS ORDERED: NON-FORMULARY ITEM (Aspirin [Aspirin] 81 MG Tablet) PO SCH (10:00)
--- NOTE | 2024-01-12 11:33 | XRAY ---
Indication: Pain. Elevated d-dimer. Two-dimensional sonogram and color Doppler imaging major venous vessels right leg performed. Comparison: September 10, 2018 No thrombus seen in examined deep venous vessels right leg including greater saphenous vein. Veins demonstrate normal compressibility. Venous waveforms are normal with and without augmentation. Impression: Right leg continues to be negative for DVT.
[2024-01-12] MEDS: Protonix 40MG Tablet PO SCH (11:38)
[2024-01-12] MEDS: ENOXAPARIN SODIUM SQ SCH (11:38)
[2024-01-12] MEDS: Bystolic 5 MG PO SCH (11:38)
[2024-01-12] MEDS: Zestril 20 MG PO SCH (11:38)
[2024-01-12] MEDS: ECOTRIN 81 MG PO SCH (11:38)
[2024-01-12 11:44] VITALS: BP 180/96; PULSE 63; RESP 19; TEMP 97.3; O2SAT 99
--- NOTE | 2024-01-12 12:09 | XRAY ---
Indication: Elevated d-dimer. Nonacute chest one day earlier. Negative same day right leg venous ultrasound. Comparison: None Patient received 36 mCi technetium 99 MAA for the perfusion portion of exam. Patient inhaled 5.6 mCi aerosolized technetium 99 DTPA for the ventilation portion of exam. Multiple planar images obtained. Perfusion images demonstrates homogeneous radiopharmaceutical bilaterally without segmental/subsegmental perfusion defect. Ventilation images also demonstrates homogeneous radiopharmaceutical activity bilaterally. Incidental small amount of ingested radiopharmaceutical activity in the GI system. Impression: Nuclear medicine ventilation/perfusion scan is normal.
--- NOTE | 2024-01-13 11:33 | ECHO ---
Transthoracic echocardiographic examination and color Doppler was done on 01/12/2024. INDICATION: Shortness of breath. IMPRESSION: 1) NO DEFINITE REGIONAL WALL MOTION ABNORMALITY. ESTIMATED GLOBAL LEFT VENTRICULAR EJECTION FRACTION BETWEEN 50 TO 55%. 2) TRACE MITRAL REGURGITATION. 3) TRACE TRICUSPID REGURGITATION. RIGHT VENTRICULAR SYSTOLIC PRESSURE OF 29 MM OF MERCURY. 4) MILD PULMONIC INSUFFICIENCY. 5) LEFT VENTRICULAR DIASTOLIC DYSFUNCTION. The left ventricle is visualized and demonstrated adequate motion of all the segments. Estimated global left ventricular ejection fraction around 50 to 55%. The left ventricular thickness is normal. The mitral valve is seen and this opens adequately. There is trace mitral regurgitation. Left atrium is normal. Tissue Doppler study of the lateral mitral annulus is suggestive of left ventricular diastolic dysfunction. The aortic valve is trileaflet opens adequately. There is no significant gradient across left ventricular outflow tract. The right side chambers are normal with normal right ventricular contractility. There is trace tricuspid regurgitation. The right ventricular systolic pressure of 29 mm of Mercury. There is mild pulmonic insufficiency.
== END 2024-01-12 13:10 | disposition home or self-care (01) ==
LOC: ED 11:21 → MED SURG 15:15
PROVIDERS: ADMIT Internal Medicine; ATTEND Internal Medicine
DX: R07.9 Chest pain, unspecified (principal); N17.9 Acute kidney failure, unspecified; I12.9 Hypertensive chronic kidney disease with stage 1 through stage 4 chronic kidney disease, or unspecified chronic kidney disease; E11.22 Type 2 diabetes mellitus with diabetic chronic kidney disease; N18.9 Chronic kidney disease, unspecified; R79.89 Other specified abnormal findings of blood chemistry; E87.8 Other disorders of electrolyte and fluid balance, not elsewhere classified; I73.9 Peripheral vascular disease, unspecified; E78.5 Hyperlipidemia, unspecified; H81.09 Meniere's disease, unspecified ear; R00.1 Bradycardia, unspecified; R60.0 Localized edema; I25.2 Old myocardial infarction; Z79.899 Other long term (current) drug therapy
CPT/HCPCS: 36000; 36415; 71046; 78582; 80053; 80061; 82947; 83721; 83880; 84443; 84484; 85025; 85379; 93005; 93306; 93971; 94762; 99284; 99291; A9540; A9567; 93268; J1650; Q3014; A9270-GY; G0378

== ENCOUNTER 2024-04-25 17:44 | Emergency (ER) | payer MEDICARE ==
[2024-04-25 18:08] VITALS: TEMP 97.9
--- NOTE | 2024-04-25 18:28 | ERPHSYRPT ---
- History of Present Illness Time Seen by Provider: 04/25/24 18:12 Source: patient Exam Limitations: no limitations Patient Subjective Stated Complaint: pt stated that something is in her pubic area blocking her urine, pt thought that it might be her bladder and went to see Dr. Smith and he stated to come to the ER if she has any problems but did not say that it was her bladder, pt also is having burning and discomfort Triage Nursing Assessment: Pt brought to the ER by her , vitals wnl, rates pain as 1/10, pt unsure if it is her bladder or what, pulses normal, skin n/w/d, denies any other issues Physician History: 78-year-old female presented in the ER with some tissue prolapse in the vaginal vault causing difficulty urination. Patient reports has burning with urination and has to strain more. It seems like something is blocking. She is worried about her bladder prolapse. Has history of hysterectomy. Denies any pain. Fever or chills reported. Allergies/Adverse Reactions: cephalexin monohydrate [From Keflex] Allergy (Unknown, Verified 04/25/24 18:08) erythromycin base [Erythromycin Base] Allergy (Unknown, Verified 04/25/24 18:08) Sulfa (Sulfonamide Antibiotics) [Sulfa(Sulfonamide Antibiotics)] Allergy (Unknown, Verified 04/25/24 18:08) doxycycline Allergy (Verified 04/25/24 18:08) betamethasone [From Celestone] Adverse Reaction (Unknown, Verified 04/25/24 18:08) tired/"doenst feel well" betamethasone sodium phosphate [From Celestone] Adverse Reaction (Unknown, Verified 04/25/24 18:08) tired/"doenst feel well" brompheniramine maleate [From Dimetapp Allergy] Adverse Reaction (Unknown, Verified 04/25/24 18:08) codeine [Codeine] Adverse Reaction (Unknown, Verified 04/25/24 18:08) phenylpropanolamine HCl [From Dimetapp Allergy] Adverse Reaction (Unknown, Verified 04/25/24 18:08) Home Medications: Aspirin 81 mg PO DAILY 09/17/14 [History] Nebivolol HCl [Bystolic] 10 mg PO DAILY 09/17/14 [History] Lisinopril 20 mg [Zestril 20 MG] 20 mg PO DAILY 10/25/15 [History] Semaglutide [Ozempic] 1 mg SQ WEEKLY 01/11/24 [History] Hx Tetanus, Diphtheria Vaccination/Date Given: Yes Hx Influenza Vaccination/Date Given: No Hx Pneumococcal Vaccination/Date Given: No Travel Risk - International Travel Have you traveled outside of the country in past 3 weeks: No - Emerging Infectious Disease Are you exhibiting symptoms associated with any current EIDs: No - Review of Systems Constitutional: No Symptoms Respiratory: No Symptoms Cardiac: No Symptoms Abdominal/Gastrointestinal: No Symptoms Genitourinary Symptoms: Dysuria, Other Musculoskeletal: No Symptoms Skin: No Symptoms Neurological: No Symptoms - Past Medical History Pertinent Past Medical History: Yes Neurological History: No Pertinent History ENT History: Cataracts Cardiac History: High Cholesterol, Hypertension, Myocardial Infarction ([place]) Respiratory History: Asthma Endocrine Medical History: Diabetes Type II Musculoskeletal History: Arthritis, Fractures GI Medical History: Colitis, Hemorrhoids, Polyps, Other History: No Pertinent History Psycho-Social History: Depression Female Reproductive Disorders: No Pertinent History Other Medical History: Previous fx in foot - Past Surgical History Past Surgical History: Yes Neuro Surgical History: No Pertinent History Cardiac: Cardiac Catheterization Respiratory: No Pertinent History Gastrointestinal: Appendectomy Genitourinary: No Pertinent History Musculoskeletal: Joint Replacement, Orthopedic Surgery Female Surgical History: Hysterectomy Other Surgical History: bilateral knee replacements, knee surgeries and arthroscopies.,. artifical lens to lilli eyes - Social History Smoking Status: Never smoker Exposure to second hand smoke: Yes Drug Use: none Patient Lives Alone: No - Social Determinants of Health Will the patient participate in the screening: Yes Do you worry about a steady place to live?: No Do you have any problems with any of the following?: No known problems In the past 12 months,have you had to go without utilities?: No Transportation Issues: No Has anyone in your support network made you feel unsafe?: No Have you or anyone in your house had to go without enough: No - Nursing Vital Signs Nursing Vital Signs: Initial Vital Signs Temperature 97.9 F 04/25/24 17:58 Pulse Rate 67 04/25/24 17:58 Blood Pressure 138/79 04/25/24 17:58 O2 Sat by Pulse Oximetry 96 04/25/24 17:58 Pain Scale Pain Intensity 1 - Physical Exam General Appearance: no apparent distress Ears, Nose, Throat Exam: normal ENT inspection Neck Exam: normal inspection, full range of motion Respiratory Exam: normal breath sounds, lungs clear Cardiovascular Exam: regular rate/rhythm, normal heart sounds Gastrointestinal/Abdomen Exam: soft, normal bowel sounds, No tenderness Pelvic Exam: other (Almost 2 cm soft tissue growth in the vaginal with no tenderness. Seems like a polyp), No vaginal bleeding Extremity Exam: normal inspection, normal range of motion Neurologic Exam: alert, oriented x 3, cooperative Skin Exam: normal color SpO2 Interpretation: normal SpO2: 96 O2 Delivery: Room Air Ordered Tests: Active Orders 24 hr Category Date Time Status CULTURE,URINE Stat Lab 04/25/24 18:33 Received UA W/RFX UR CULTURE Stat Lab 04/25/24 18:33 Completed Lab/Rad Data: Laboratory Results 04/25/24 Range/Units 18:33 Urine Color Yellow (Yellow) Urine Appearance Turbid A (Clear) Urine pH 5.5 (4.6-8.0) Ur Specific [place] 1.015 (1.005-1.030) Urine Protein Negative (Negative) Urine Glucose (UA) 100 A (Negative) mg/dL Urine Ketones Negative (Negative) Urine Blood Negative (Negative) Urine Nitrite Negative (Negative) Urine Bilirubin Negative (Negative) Urine Urobilinogen 1.0 A (0.2) mg/dL Ur Leukocyte Esterase Large A (Negative) U Hyaline Cast (Auto) 3-5 A (0-2) /LPF Urine Microscopic RBC 0-2 (0-5) /HPF Urine Microscopic WBC 51-100 A (0-5) /HPF Ur Epithelial Cells None Seen (None Seen) /HPF Urine Bacteria None Seen (None Seen) /HPF Urine Culture Reflexed YES (NO) - Progress Progress: unchanged Air Movement: good Progress Note: 04/25/24 19:45 78-year-old is evaluated in the ER for vaginal growth and some UTI symptoms. On exam it seems like patient has a vaginal polyp. Is not inflamed, nontender. Does have UTI as well and started on Levaquin. Recommended outpatient follow-up with PSYCHIATRIC REGISTERED NURSE for further evaluation. Discussed signs symptoms of worsening needing return to ER which she seems understanding. Stable for discharge. Blood Culture(s) Obtained: No Antibiotics given: Yes Counseled pt/family regarding: lab results, diagnosis, need for follow-up Medical Desision Making - Independent Historian Additional History obtained from: Spouse - Diagnostic Testing Diagnostic test were ordered, analyzed, and reviewed by me: Yes - Risk of complications The pt has a mod risk of morbidity or mortality based on: Need for prescription drug management - Departure Departure Disposition: Home Clinical Impression: Acute UTI (urinary tract infection), Polyp of vagina Condition: Stable Critical Care Time: No Referrals: SARAH SMITH MD [Primary Care Provider] - Follow up with PCP 1 day FILI AVALOS DO [ACTIVE STAFF] - Follow up/PCP as directed (Call for appointment) Instructions: Urinary Tract Infection, Adult ED Additional Instructions: Take Tylenol as needed. Drink plenty of fluids. Follow-up with PSYCHIATRIC REGISTERED NURSE for reevaluation. Also follow-up with primary care for reevaluation of UTI. Return to ER for intractable pain, difficulty urination, fever chills/vomiting etc. Prescriptions: Levofloxacin [Levofloxacin 250MG Tablet] 250 mg PO DAILY 6 Days #6 tab
[2024-04-25 18:55] LABS: Appearance Turbid (Clear); Bacteria None Seen /HPF (None Seen); Bilirubin Negative (Negative); Blood Negative (Negative); Epithelial Cells None Seen /HPF (None Seen); Glucose, Urine 100 mg/dL (Negative); Ketones Negative (Negative); Leukocyte Esterase Large (Negative); Nitrite Negative (Negative); Ph 5.5 (4.6-8.0); Protein,Urine Dip Negative (Negative); RBC 0-2 /HPF (0-5); Specific Gravity 1.015 (1.005-1.030); WBC 51-100 /HPF (0-5)
[2024-04-25 18:56] LABS: ADD URINE CULTURE? YES (NO)
[2024-04-25] MEDS ORDERED: Levofloxacin 500 MG Tablet ONE (19:46)
[2024-04-25] MEDS: Levofloxacin 500 MG Tablet PO ONE (19:47)
[2024-04-25 19:54] VITALS: RESP 18
[2024-04-25 20:05] VITALS: BP 132/66; PULSE 59; O2SAT 100
== END 2024-04-25 20:05 | disposition home or self-care (01) ==
LOC: ED 17:44
DX: N39.0 Urinary tract infection, site not specified (principal); N84.2 Polyp of vagina; R30.0 Dysuria; E78.5 Hyperlipidemia, unspecified; I10 Essential (primary) hypertension; E11.9 Type 2 diabetes mellitus without complications; Z79.85 Long-term (current) use of injectable non-insulin antidiabetic drugs; Z79.899 Other long term (current) drug therapy
CPT/HCPCS: 81001; 87077; 87086; 87186; 99283; A9270-GY

== ENCOUNTER 2024-10-22 13:45 | Emergency (ER) | payer MEDICARE ==
--- NOTE | 2024-10-22 13:47 | ERPHSYRPT ---
- History of Present Illness Time Seen by Provider: 10/22/24 13:47 Source: patient, family Exam Limitations: no limitations Physician History: This is a 79-year-old white female patient of Dr. Smith who fell off a curb prior to arrival and injured her right knee. She has mild right knee pain. Patient has had a right knee arthroplasty in the past. She did not injure her head or neck or any other area of her body. Patient is primarily concerned about the hardware in her knee from her knee replacement having moved or dislodged and to make sure there is no blood pooling in the area of her old surgery. Patient is on Eliquis. She has a history of diabetes and hyp ertension. Occurred: just prior to arrival Reason for Fall: tripped Injuries/Pain Location: lower extremity Loss of Consciousness: no loss of consciousness (Right knee) Quality: aching Severity of Pain-Max: mild Severity of Pain-Current: mild Modifying Factors: Improves With: nothing Associated Symptoms (Fall): denies symptoms Allergies/Adverse Reactions: cephalexin monohydrate [From Keflex] Allergy (Unknown, Verified 10/22/24 13:50) erythromycin base [Erythromycin Base] Allergy (Unknown, Verified 10/22/24 13:50) Sulfa (Sulfonamide Antibiotics) [Sulfa(Sulfonamide Antibiotics)] Allergy (Unknown, Verified 10/22/24 13:50) doxycycline Allergy (Verified 10/22/24 13:50) betamethasone [From Celestone] Adverse Reaction (Unknown, Verified 10/22/24 13:50) tired/"doenst feel well" betamethasone sodium phosphate [From Celestone] Adverse Reaction (Unknown, Verified 10/22/24 13:50) tired/"doenst feel well" brompheniramine maleate [From Dimetapp Allergy] Adverse Reaction (Unknown, Verified 10/22/24 13:50) codeine [Codeine] Adverse Reaction (Unknown, Verified 10/22/24 13:50) phenylpropanolamine HCl [From Dimetapp Allergy] Adverse Reaction (Unknown, Verified 10/22/24 13:50) Home Medications: Aspirin 81 mg PO DAILY 09/17/14 [History] Lisinopril 20 mg [Zestril 20 MG] 20 mg PO DAILY 10/25/15 [History] Semaglutide [Ozempic] 1 mg SQ WEEKLY 01/11/24 [History] Apixaban [Eliquis] 2.5 mg PO BID 10/22/24 [History] Hx Tetanus, Diphtheria Vaccination/Date Given: Yes Hx Influenza Vaccination/Date Given: No Hx Pneumococcal Vaccination/Date Given: No Travel Risk - International Travel Have you traveled outside of the country in past 3 weeks: No - Emerging Infectious Disease Are you exhibiting symptoms associated with any current EIDs: No - Review of Systems Constitutional: No Symptoms Eyes: No Symptoms Ears, Nose, & Throat: No Symptoms Respiratory: No Symptoms Cardiac: No Symptoms Abdominal/Gastrointestinal: No Symptoms Genitourinary Symptoms: No Symptoms Musculoskeletal: Fall, Injury (Right knee) Skin: No Symptoms Neurological: No Symptoms Psychological: No Symptoms Endocrine: No Symptoms Hematologic/Lymphatic: No Symptoms Immunological/Allergic: No Symptoms All Other Systems: Reviewed and Negative - Past Medical History Pertinent Past Medical History: Yes Neurological History: No Pertinent History ENT History: Cataracts Cardiac History: High Cholesterol, Hypertension, Myocardial Infarction ([place]) Respiratory History: Asthma Endocrine Medical History: Diabetes Type II Musculoskeletal History: Arthritis, Fractures GI Medical History: Colitis, Hemorrhoids, Polyps, Other History: No Pertinent History Psycho-Social History: Depression Female Reproductive Disorders: No Pertinent History Other Medical History: Previous fx in foot - Past Surgical History Past Surgical History: Yes Neuro Surgical History: No Pertinent History Cardiac: Cardiac Catheterization Respiratory: No Pertinent History Gastrointestinal: Appendectomy Genitourinary: No Pertinent History Musculoskeletal: Joint Replacement, Orthopedic Surgery Female Surgical History: Hysterectomy Other Surgical History: bilateral knee replacements, knee surgeries and arthroscopies.,. artifical lens to lilli eyes - Social History Smoking Status: Never smoker Exposure to second hand smoke: Yes Drug Use: none Patient Lives Alone: No - Social Determinants of Health Will the patient participate in the screening: Yes Do you worry about a steady place to live?: No In the past 12 months,have you had to go without utilities?: No Transportation Issues: No Has anyone in your support network made you feel unsafe?: No Have you or anyone in your house had to go without enough: No - Nursing Vital Signs Nursing Vital Signs: Initial Vital Signs Temperature 98 F 10/22/24 13:50 Pulse Rate 69 10/22/24 13:50 Respiratory Rate 10/22/24 13:50 Blood Pressure 155/76 10/22/24 13:50 O2 Sat by Pulse Oximetry 99 10/22/24 13:50 Pain Scale Pain Intensity 1 - Ferny Coma Score Best Eye Response ([place]): (4) open spontaneously Best Verbal Response ([place]): (5) oriented Best Motor Response ([place]): (6) obeys commands [place] Total: 15 - Physical Exam General Appearance: no apparent distress, alert Head Injury: no evidence of injury Eye Exam: PERRL/EOMI, eyes nml inspection ENT Exam: airway nml, nml ext.inspection Neck Exam: supple, trachea midline, full range of motion, normal alignment, normal inspection Respiratory/Chest Exam: normal breath sounds, No chest tenderness, No respiratory distress, No ecchymosis, No crepitus Cardiovascular Exam: normal heart sounds, regular rate/rhythm Gastrointestinal Exam: No tenderness Rectal Exam: not done Back Exam: normal inspection, normal range of motion, CVA tenderness Extremity Exam: normal range of motion, pelvis stable, tenderness (Very mild tenderness anterior right knee. Mild skin abrasions to the skin overlying the right knee) Neurologic Exam: alert, oriented x 3, cooperative, surfboard designer II-XII nml as tested, normal mood/affect, nml cerebellar function, nml station & gait, sensation nml Skin Exam: abrasion (Given abrasion overlying right knee patella) SpO2 Interpretation: normal O2 Delivery: Room Air - Course Nursing assessment & vital signs reviewed: Yes Ordered Tests: Active Orders 24 hr Category Date Time Status KNEE (3 VIEWS) Stat Exams 10/22/24 14:33 Completed - Progress Progress: unchanged, pain not gone completely Progress Note: 10/22/24 15:14 My medical decision making the assignment of low complexity to this patient's medical issue today is based on review of the patient's past medical history, review the patient's medication list, reviewed patient drug allergy list, history present illness and physical findings on examination. The workup in this patient includes 3 view x-ray of the right knee. Differential diagnosis includes but is not limited to right knee skin abrasion, right knee fracture, right knee dislocation, right knee sprain The 3 view x-ray of the right knee was interpreted by the radiologist and I reviewed the impression. The impression states the hardware of the right knee arthroplasty is intact. There are no new, acute abnormalities Medical Desision Making - Independent Historian Additional History obtained from: Relative/friend - Diagnostic Testing Diagnostic test were ordered, analyzed, and reviewed by me: Yes Radiological Interpretation: Reviewed by me, Teleradiologist Report - Risk of complications Low Risk: Low risk of morbidity from additional dx testing or treatment - Departure Departure Disposition: Home Clinical Impression: Fall, Abrasion, right knee, initial encounter Condition: Stable Critical Care Time: No Referrals: SARAH SMITH MD [Primary Care Provider] - Follow up/PCP as directed Additional Instructions: Keep the abrasion site clean daily with soap and water. May apply antibiotic ointment of choice to the area of abrasions daily. Ice pack to tender area 2-3 times a day for 2 to 3 days. Call your primary care provider on 10/25/2024, to make arrangements for follow-up appointment for further evaluation and management.
[2024-10-22 14:04] VITALS: PULSE 69; RESP 17; TEMP 98
--- NOTE | 2024-10-22 15:02 | XRAY ---
Indication: Pain following fall. Comparison: August 05, 2024 3 view right knee unchanged again demonstrating osteopenia, intact total knee arthroplasty with tiny medial heterotopic ossifications, tiny patella spurring, tiny fibula head heterotopic ossification, and mild scattered vascular calcifications. No new/acute abnormalities.
[2024-10-22 15:37] VITALS: BP 135/90; O2SAT 96
== END 2024-10-22 15:38 | disposition home or self-care (01) ==
LOC: ED 13:45
DX: S80.211A Abrasion, right knee, initial encounter (principal); W10.1XXA Fall (on)(from) sidewalk curb, initial encounter; E11.9 Type 2 diabetes mellitus without complications; I10 Essential (primary) hypertension; E78.5 Hyperlipidemia, unspecified; Z79.01 Long term (current) use of anticoagulants; Z79.85 Long-term (current) use of injectable non-insulin antidiabetic drugs; Z79.899 Other long term (current) drug therapy
CPT/HCPCS: 73562; 99282; 99284